=== PATIENT | female | born 1940 | race Caucasian/White ===

== ENCOUNTER 2024-06-22 11:38 | Emergency (ER) | payer MEDICARE, OTHER, SELFPAY ==
[2024-06-22] VITALS (7 sets, daily range): BP systolic 128–186; BP diastolic 41–60; PULSE 65–69; RESP 15–20; TEMP 36.2–36.8; O2SAT 95–97
--- NOTE | ~2024-06-22 | CT_ITS ---
EXAMINATION: CT brain wo con DATE: 06/22/2024 16:12 INDICATION: Altered mental status TECHNIQUE: Computed tomography (CT) of the head was performed without intravenous contrast. Sagittal and coronal reconstructions were performed. The mA was adjusted according to patient size. Iterative reconstruction technique was employed. The dose-length product was 529.67 mGy-cm. COMPARISON: None FINDINGS: No acute intracranial hemorrhage, acute infarction or abnormal extra axial fluid collection. There is mild scattered white matter hypoattenuation consistent with chronic small vessel ischemic disease. S ymmetric prominence of the sulci consistent with moderate age-appropriate diffuse cerebral volume los s. No mass/mass effect. Ventricles are normal and symmetric. Changes of bilateral intraocular lens re placement. The orbits, paranasal sinuses and mastoid air cells are normal. Intracranial calcified cer ebral atherosclerosis is noted. IMPRESSION: 1. Normal aging brain. No acute intracranial process. Reviewed, dictated and finalized at location B. MIXER
--- NOTE | 2024-06-22 12:00 | ECG_ITS ---
Test Date: 2024-06-22 12:08:47 Measurements Intervals [place] Rate: 66 P: 83 PA: 181 QRS: -21 QRSD: 106 T: 30 QT: 434 QTc: 456 Interpretive Statements SINUS RHYTHM SEPTAL MYOCARDIAL INFARCTION , PROBABLY OLD [40+ ms Q WAVE IN V1/V2] No previous ECG available for comparison Electronically Signed On 06-22-2024 14:51:45 RAILROAD OPERATOR by César Lewis M.D.
[2024-06-22 12:18] LABS: Glucose Point of Care 178 mg/dl (65-105)
--- NOTE | 2024-06-22 12:44 | PC.NURSE ---
Spoke with Daughter/Aldair not planned on coming to ED yet but will try later. Will let patient know
[2024-06-22 12:46] LABS: Add Urine Microscopic? NO; Appearance Urine Clear (Clear); Bilirubin Urine Negative (Negative); Blood Urine Negative (Negative); Color Urine Yellow (Yellow); Glucose Urine UA Negative (Negative); Ketones Urine Negative (Negative); Leukocyte Esterase Ur Negative LEU/UL (Negative); Nitrate Urine Negative (Negative); Protein Urine Negative (Negative); Urobilinogen Urine 0.2 mg/dL (<2.0); pH Urine 7.5 (5.0-9.0)
[2024-06-22 12:47] LABS: Basophils Percent Auto 0.5 % (0.2-1.2); Eosinophils Absolute Auto 0.2 K/mm3 (0-0.3); Eosinophils Percent Auto 2.5 % (0-4.4); Hematocrit 42.9 % (37.0-47.0); Hemoglobin 13.8 g/dL (12.0-15.0); Immature Granulocyte Absolute 0.02 K/mm3 (0.00-0.031); Immature Granulocyte Percent A 0.2 % (0-0.5); Lymphocytes Absolute Auto 1.79 K/mm3 (0.9-3.2); Lymphocytes Percent Auto 21.7 % (18.3-44.2); Mean Corpuscular HGB Conc 32.2 g/dl (32-36); Mean Corpuscular Hemoglobin 26.7 pg (26-34); Mean Corpuscular Volume 83.1 fl (80-100); Mean Platelet Volume 10.1 fl (7.4-10.4); Monocytes Absolute Auto 0.9 K/mm3 (0.1-0.6); Monocytes Percent Auto 10.7 % (2.6-8.5); Neutrophils Absolute Auto 5.3 K/mm3 (1.3-6.7); Neutrophils Percent Auto 64.4 % (45.5-73.1); Platelet Count Result 177 k/mm3 (150-375); Red Blood Count 5.16 M/mm3 (4.2-5.4); Red Cell Distribution Width 14.8 % (11.5-14.5); White Blood Count 8.3 K/mm3 (4.5-10.0)
[2024-06-22 12:58] LABS: INR 1.1; Prothrombin Time 14.6 Seconds (11.1-14.7)
[2024-06-22 12:59] LABS: Alanine Aminotransferase 20 U/L (6-35); Albumin Level 4.2 g/dL (3.5-5.1); Alkaline Phosphatase 93 U/L (38-126); Anion Gap 8 mmol/L (4-12); Aspartate Amino Transferase 39 U/L (14-36); Bilirubin,Total 1.5 mg/dL (0.2-1.3); Blood Urea Nitrogen 20 mg/dL (7-17); Calcium 9.9 mg/dL (8.4-10.2); Carbon Dioxide 35 mmol/L (22-30); Chloride 93 mmol/L (98-107); Estimated CRCL calculation 48 ml/min; Estimated Glomerular Filt Rate > 60; Glucose 196 mg/dL (65-110); Partial Thromboplastin Time 29.9 Seconds (22.3-36.8); Potassium 3.9 mmol/L (3.4-5.0); Sodium 136 mmol/L (137-145)
--- NOTE | 2024-06-22 15:48 | ED.AMS ---
HPI - Altered Mental Status General Chief Complaint: Altered Mental Status Stated Complaint: AMS x 2 days Time Seen by Provider: 06/22/24 11:59 History of Present Illness HPI narrative: Patient is an 83-year-old female with history of dementia who presents ER with reported confusion. Oriented to self/place/month but is 2 years behind. She has no complaints pain but she is tearful. Patient had reported to staff that she is having trouble seeing. She does have history of macular degeneration. She has no additional complaints at this time. Related Data Allergies Allergy/AdvReac Type Severity Reaction Status Date / Time Penicillins Allergy Severe LOSS OF Verified 02/26/09 11:50 CONSCIOUSNESS Review of Systems Review of Systems: ROS unobtainable: Yes unobtainable due to mental status PMFSH Past Medical History Medical History (Updated 06/22/24 @ 16:25 by Guillermo Ellison MD) Macular degeneration Diabetes Dementia Exam Narrative: GENERAL: Well-appearing, well-nourished, and in no acute distress. HEAD: Normocephalic, atraumatic. ENT: Mucous membranes moist. CHEST: Clear to auscultation. No respiratory distress. HEART: Regular rate and rhythm. Normal peripheral pulses. ABDOMEN: Soft, nontender, nondistended. EXTREMITIES: Normal range of motion. No edema. SKIN: Warm, dry, no rash. NEURO: Alert and oriented x3. Course Course Emergency Course: Patient resting comfortably. Informed her and family results. Patient be discharged. Vital Signs Vital signs: Vital Signs Temperature 98.2 F 06/22/24 11:49 Pulse Rate 68 06/22/24 11:49 Respiratory Rate 16 06/22/24 11:49 Blood Pressure 186/47 H 06/22/24 11:49 Pulse Oximetry 95 06/22/24 11:49 Oxygen Delivery Room Air 06/22/24 11:49 Temperature 98.2 F 06/22/24 11:49 Pulse Rate 65 06/22/24 14:15 Respiratory Rate 20 06/22/24 14:15 Blood Pressure 128/55 L 06/22/24 14:15 Pulse Oximetry 97 06/22/24 14:15 Oxygen Delivery Room Air 06/22/24 12:00 MDM - Altered Mental Status Lab Data 06/22/24 12:29 06/22/24 12:29 Labs: Lab Results 06/22/24 06/22/24 Range/Units 12:11 12:29 WBC 8.3 (4.5-10.0) K/mm3 RBC 5.16 (4.2-5.4) M/mm3 Hgb 13.8 (12.0-15.0) g/dL Hct 42.9 (37.0-47.0) % MCV 83.1 (80-100) fl MCH 26.7 (26-34) pg MCHC 32.2 (32-36) g/dl RDW 14.8 H (11.5-14.5) % Plt Count 177 (150-375) k/mm3 MPV 10.1 (7.4-10.4) fl Immature Gran % (Auto) 0.2 (0-0.5) % Neut % (Auto) 64.4 (45.5-73.1) % Lymph % (Auto) 21.7 (18.3-44.2) % [place] % (Auto) 10.7 H (2.6-8.5) % Eos % (Auto) 2.5 (0-4.4) % Baso % (Auto) 0.5 (0.2-1.2) % Lymph # (Auto) 1.79 (0.9-3.2) K/mm3 [place] # (Auto) 0.9 H (0.1-0.6) K/mm3 Eos # (Auto) 0.2 (0-0.3) K/mm3 Baso # (Auto) 0.0 (0.0-0.1) K/mm3 Abs Immat Gran (auto) 0.02 (0.00-0.031) K/mm3 Absolute Neuts (auto) 5.3 (1.3-6.7) K/mm3 Absolute Nucleated RBC 0.000 (0.0-0.012) K/mm3 Nucleated RBC % 0.0 (0.0-0.2) % PT 14.6 (11.1-14.7) Seconds INR 1.1 APTT 29.9 (22.3-36.8) Seconds Sodium 136 L (137-145) mmol/L Potassium 3.9 (3.4-5.0) mmol/L Chloride 93 L (98-107) mmol/L Carbon Dioxide 35 H (22-30) mmol/L Anion Gap 8 (4-12) mmol/L BUN 20 H (7-17) mg/dL Creatinine 0.71 (0.7-1.0) mg/dL Estim Creat Clear Calc 48 ml/min Estimated GFR > 60 (59 - ) Glucose 196 H (65-110) mg/dL POC Capillary Glucose 178 H (65-105) mg/dl Calcium 9.9 (8.4-10.2) mg/dL Total Bilirubin 1.5 H (0.2-1.3) mg/dL AST 39 H (14-36) U/L ALT 20 (6-35) U/L Alkaline Phosphatase 93 (38-126) U/L Total Protein 8.0 (6.3-8.2) g/dL Albumin 4.2 (3.5-5.1) g/dL Urine Color Yellow (Yellow) Urine Appearance Clear (Clear) Urine pH 7.5 (5.0-9.0) Ur Specific [place] 1.010 (1.001-1.035) Urine Protein Negative (Negative) mg/dL Urine Glucose (UA) Negative (Negative) mg/dL Urine Ketones Negative (Negative) mg/dL Ur Blood (Man) Negative (Negative) Urine Nitrate Negative (Negative) Urine Bilirubin Negative (Negative) Urine Urobilinogen 0.2 (<2.0) mg/dL Leukocyte Esterase Rfl Negative (Negative) KAREN/UL Imaging Data Radiologist's impression: ITS Impressions Head CT 06/22/24 16:12 IMPRESSION: 1. Normal aging brain. No acute intracranial process. ECG Data EKG #1: ECG completion date: 06/22/24 ECG completion time: 12:08 EKG Interpretation: normal rate (66), sinus rhythm, no ectopy, non-specific ST changes, normal QRS and normal QT Discharge Plan Discharge Clinical Impression: Dementia Patient Disposition: Home, Self-Care Condition: Stable Instructions: Dementia (ED) Additional Instructions: Return the ER if you have fever 100.4? F, he cannot keep down food water, you lose consciousness, or have additional concerns. Patient Language: Slovenian Follow-up/Referrals: UNKNOWN,DOCTOR [Primary Care Provider] - 1 Week
--- NOTE | 2024-06-22 16:46 | PC.NURSE ---
Report to Jayne at [facility]-made aware that daughter will be bringing her home
== END 2024-06-22 16:58 ==
PROVIDERS: Emergency Medicine; Emergency Provider Emergency Medicine
DX: F03.90 Unspecified dementia, unspecified severity, without behavioral disturbance, psychotic disturbance, mood disturbance, and anxiety (principal); H35.30 Unspecified macular degeneration; E11.9 Type 2 diabetes mellitus without complications; R94.31 Abnormal electrocardiogram [ECG] [EKG]
CPT/HCPCS: 36415; 70450; 80053; 81003; 82948; 85025; 85610; 85730; 93005; 99284

== ENCOUNTER 2024-09-15 06:58 | Emergency (ER) | payer MEDICARE, OTHER, SELFPAY ==
--- NOTE | ~2024-09-15 | CT_ITS ---
EXAM: CT brain wo con, CT facial & cervical spine wo, CT thoracic lumbar wo con - 09/15/2024 07:50 CDT History: 83 years old Female with Fall, Bilateral hand, L arm/leg weakness COMPARISON: 06/22/2024 PROCEDURE: CT of the face, head and cervical spine without contrast. Axial, sagittal and coronal re formatted planes were evaluated. FINDINGS: CT HEAD: BRAIN PARENCHYMA: No acute hemorrhage. No mass effect or herniation. Bravo-white matter differentiatio n is maintained. Mild chronic volume loss. Scattered hypodensities in subcortical and periventricular white matter, likely representing chronic microvascular ischemic changes in this age group. Atherosc lerotic calcification of the intracranial vessels is noted. VENTRICLES/ EXTRA-AXIAL SPACES: No hydrocephalus or extra-axial fluid collection. EXTRACRANIAL STRUCTURES: No calvarial fracture. Partial opacification of bilateral sinuses with air f luid levels. CT CERVICAL SPINE: No acute fracture or subluxation. Straightening of cervical lordosis, likely positional or may be rel ated to muscle spasm. Multilevel degenerative changes of the cervical spine include varying degrees o f disk space narrowing, endplate osteophytosis as well as facet and uncal arthropathy. Prevertebral s oft tissues are within normal limits. Visualized lung apices are clear. CT FACE: BONES: Nondisplaced fracture of the bilateral nasal bone (left greater than right) with overlying sof t tissue injury. No evidence of periorbital, zygomatic, maxillary, pterygoid or mandible fracture. Th e temporomandibular joints are intact. PARANASAL SINUSES and MASTOID AIR CELLS: Clear. SOFT TISSUES: Globes are symmetric and intact. No retrobulbar soft tissue edema, hemorrhage or air. OTHER: Patient is partially edentulous. IMPRESSION: 1. Nondisplaced fracture of the bilateral nasal bone (left greater than right) with overlying soft t issue injury. 2. No evidence for acute intracranial hemorrhage or calvarial fracture. 3. No evidence for cervical spine fracture or traumatic subluxation. 4. Multilevel degenerative changes of the cervical spine. Reviewed, dictated and finalized at location A. IMPRESSION: 1. Nondisplaced fracture of the bilateral nasal bone (left greater than right) with overlying soft tissue injury. 2. No evidence for acute intracranial hemorrhage or calvarial fracture. 3. No evidence for cervical spine fracture or traumatic subluxation. 4. Multilevel degenerative changes of the cervical spine. IMPRESSION: 1. Nondisplaced fracture of the bilateral nasal bone (left greater than right) with overlying soft tissue injury. 2. No evidence for acute intracranial hemorrhage or calvarial fracture. 3. No evidence for cervical spine fracture or traumatic subluxation. 4. Multilevel degenerative changes of the cervical spine.
--- NOTE | ~2024-09-15 | XR_ITS ---
EXAM/ PROCEDURE: XR hip LT 2V w AP pelvis - 09/15/2024 07:40 CDT HISTORY: 83 years old Female with Fall, Hip pain COMPARISON: None available TECHNIQUE: Three view(s) FINDINGS/ IMPRESSION: There are no fractures or dislocations.Joint space narrowing, subchondral sclerosis, subchondral cyst formation and osteophyte formation, compatible with moderate osteoarthritis. Reviewed, dictated and finalized at location A.
--- NOTE | ~2024-09-15 | XR_ITS ---
EXAM/PROCEDURE: XR chest 1V portable - 09/15/2024 07:40 CDT HISTORY: 83 years old Female with Fall, Bilateral hand weakness, L arm/leg weakness TECHNIQUE: Two view(s) of the chest. COMPARISON: None available. FINDINGS: LUNGS/ PLEURA: Mild vascular congestion with increased interstitial markings. HEART/ MEDIASTINUM: Mild cardiomegaly. Atherosclerotic calcifications are seen. BONES: Degenerative changes. OTHER: Visualized upper abdomen is unremarkable. IMPRESSION: Mild cardiomegaly with pulmonary vascular congestion. Superimposed infection cannot be excluded. Reviewed, dictated and finalized at location A. IMPRESSION: Mild cardiomegaly with pulmonary vascular congestion. Superimposed infection ca nnot be excluded.
[2024-09-15 07:01] VITALS: BP 137/116; PULSE 65; RESP 16; TEMP 36.5; O2SAT 98
--- OUTSIDE RECORDS SUMMARY | 2024-09-15 07:18 | XMS_ITS | Clinical Summary ---
Author Organization [facility] Address [address] [place] [address] Phone Care Team Providers Care Brass Buffer Name Role Phone Varun Leung MD Primary Care Provider [phone] Allergies Active Allergy Reactions Criticality Noted Date Comments Penicillins Other (See Comments) 06/03/2016 Pt states she fell of the commode due to dizziness Sulfa (Sulfonamide Antibiotics) Rash Low 06/03/2016 Medications atenolol (TENORMIN) 100 mg tablet Take 100 mg by mouth daily. Active atorvastatin (LIPITOR) 20 mg tablet Take 20 mg by mouth late in the day. Active hydroCHLOROthia zide 25 mg tablet Take 25 mg by mouth daily. 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 Active metFORMIN (GLUCOPHAGE) 1,000 mg tablet Take 1,000 mg by mouth daily before supper. Active sertraline (ZOLOFT) 50 mg tablet Take 50 mg by mouth daily. Active Vit C-Vit U-Prdpgk-KbGo-L utein (PRESERVISION) 226 mg-200 unit -5 mg-0.8 mg Capsule Take 1 Capsule by mouth 2 times daily. Active acetaminophen (TYLENOL) 500 mg tablet Take 500 mg by mouth every 6 hours as needed. Active traMADol (ULTRAM) 50 mg tablet Take 2 Tablet (100 mg) by mouth every 6 hours as needed for Pain. 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 Gender Identity Not on file Sexual Orientation Not on file Last Filed Vital Signs Vital Sign Reading Time Taken Comments Blood Pressure 140/40 06/23/2016 8:09 AM ENTERPRISE SERVICES MANAGER Pulse 72 06/23/2016 8:09 AM ENTERPRISE SERVICES MANAGER Temperature 36.8 C (98.3 F) 06/23/2016 8:09 AM ENTERPRISE SERVICES MANAGER Respiratory Rate 18 06/23/2016 8:09 AM ENTERPRISE SERVICES MANAGER Oxygen Saturation 95% 06/23/2016 8:09 AM ENTERPRISE SERVICES MANAGER Inhaled Oxygen Concentration - - Weight 79.4 kg (175 lb) 06/21/2016 4:06 PM ENTERPRISE SERVICES MANAGER Height 160 cm (5' 3 ) 06/21/2016 4:06 PM ENTERPRISE SERVICES MANAGER Body Mass Index 31 06/21/2016 4:06 PM ENTERPRISE SERVICES MANAGER Plan of Treatment Health Maintenance Due Date Last Done Comments DTAP/TDAP/TD VACCINES (1 - Tdap) 1957 PNEUMOCOCCAL VACCINE 50+ YEARS (1 of 1 - PCV) 12/20/18 89 ZOSTER VACCINE (1 of 2) 1988 OSTEOPOROSIS SCREENING 12/21/2003 RSV VACCINE (60+ or ) (1 - 1-dose 75+ series) 2013 INFLUENZA VACCINE (#1) 2024 03/06/2016 Medical Devices Implanted Type Area Asbestos Wire Finisher Device Identifier Shelf Expiration Date Model / Serial / Lot Hemostatic Gelfoam Plus Spng Kt [id number] - [id number] Implanted:Qt y: 1 on 06/21/2016 by Mahad Dickerson MD at [facility] Hemostatic N/A: Vertebrae [employer]- [employer]ENCE [id number] 10/03/2017 [id number] / / [id number] Tkr Cataract Lens Insurance Advance Directives For more information, please contact: [phone] * Full Code (Latest Code Status on File) Date Activated Date Inactivated Comments 06/21/2016 2:04 PM 06/23/2016 1:27 PM * Full Code Date Activated Date Inactivated Comments 06/21/2016 9:25 AM 06/21/2016 2:04 PM * Full Code Date Activated Date Inactivated Comments 06/21/2016 8:45 AM 06/21/2016 9:25 AM Care Teams Brass Buffer Relationship Specialty Start Date End Date Varun Leung MD [address] [place] [address] PCP - General Internal Medicine 05/25/16
--- OUTSIDE RECORDS SUMMARY | 2024-09-15 07:19 | XMS_ITS | Referral Summary ---
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 Active blood-glucose meter kit Use daily for monitoring of diabetes DX E11.65 1 each 9 Active multivit-minerals/ folic acid (CENTRUM VITAMINTS ORAL) Take by mouth education dean before breakfast Active albuterol HFA (PROVENTIL HFA,VENTOLIN HFA,PROAIR HFA) 90 mcg/actuation inhaler Inhale 1-2 puffs every 6 (six) hours as needed for wheezing 1 g 2 Active ondansetron (ZOFRAN) 4 mg tablet Take 1 tablet (4 mg total) by mouth every 6 (six) hours 12 tablet 2 Active benzonatate (TESSALON) 100 mg capsuleIndications :Cough Take 1 capsule (100 mg total) by mouth every 8 (eight) hours 21 capsule 2 Active atorvastatin (LIPITOR) 20 mg tabletIndications: Mixed hyperlipidemia TAKE 1 TABLET(20 MG) BY MOUTH DAILY 90 tablet 3 3 Active hydroCHLOROthiazid e (HYDRODIURIL) 25 mg tablet Take 1 tablet (25 mg total) by mouth daily 90 tablet 2 3 Active sertraline (ZOLOFT) 50 mg tablet Take 1 tablet (50 mg total) by mouth daily 90 tablet 3 Active blood glucose diagnostic (OneTouch Verio test strips) strip USE TO CHECK BLOOD GLUCOSE ONE TIME DAILY 100 strip 3 3 Active SITagliptin phosphate (Januvia) 100 mg tablet Take 1 tablet by mouth once daily 90 tablet 3 3 Active lancets (OneTouch Delica Plus Lancet) 30 gauge misc Use to test blood sugars once daily 100 each 3 3 Active levothyroxine (SYNTHROID) 88 mcg tablet Take 1 tablet (88 mcg total) by mouth daily 90 tablet 1 3 Active repaglinide (PRANDIN) 1 mg tablet Take 1 tablet by mouth with each meal daily 270 tablet 3 Active metoprolol tartrate (LOPRESSOR) 25 mg immediate release tabletIndications: Essential hypertension TAKE ONE TABLET BY MOUTH 2 TIMES A DAY 60 tablet 4 4 Active Active Problems Problem Noted Date Diagnosed Date Severe obesity (BMI 35.0-39.9) with comorbidity 08/31/2022 Numbness and tingling in left hand 03/06/2020 Overview (08/13/2020): Started in fall 2019, entire hand tingles, feels numb. No pain in neck, elbow or wrist. Assessment & Plan (08/24/2020 1:49 PM CDT): For the past six months, just after her last office visit, she has noticed numbness and tingling in her right hand. It is the entire hand. There is no pain in the neck or at the right elbow or right wrist. Exam shows no weakness or reflex deficit. I recommended that she have an EMG/NCS. She does not want to pursue any diagnostic testing right now, but will call when she is ready to do so. Type 2 diabetes mellitus wit h hyperglycemia, without long-term current use of insulin 01/23/2019 Assessment & Plan (02/26/2022 1:05 PM CDT): Her last HbA1c was 7.5% in endocrinology. Dr. Munoz was happy with this result. She had her eye exam. We will get the report. Assessment & Plan (08/26/2021 11:57 AM CDT): She says Dr. Munoz is happy with her current blood sugars and HbA1c which is slightly elevated. Continue Januvia and Prandin. Lab Results Component Value Date HGBA1C 8.2 (H) 08/19/2021 Assessment & Plan (02/23/2021 11:21 AM CDT): She is working with Dr. Munoz to get her diabetes under better control. Her next visit is in about six weeks. Her hemoglobin A1c has gone up a bit. We discussed this today. She is working to control her diet, and hopefully get her weight down. Lab Results Component Value Date HGBA1C 8.6 (H) 02/17/2021 HGBA1C 7.8 01/05/2021 HGBA1C 7.8 (H) 06/25/2020 Lab Results Component Value Date LDLCALC 90 02/17/2021 CREATININE 0.62 02/17/2021 Assessment & Plan (12/27/2019 10:01 AM CDT): She is followed by Dr. Munoz. Hemoglobin A1c at the point of care was slightly elevated. She takes Prandin with meals in addition to Januvia. Unfortunately, she is intolerant of metformin. She will keep her follow ups with Dr. Munoz. Scab 08/04/2017 Overview (08/13/2020): Left lower fuller, started as a hematoma/abrasion when she lost balance stepping off exercise equipment at [employer]. It never completely healed. Assessment & Plan (08/13/2020 12:51 PM PLAN MANAGER): She has a fairly nondescript and irregularly shaped eschar over left lower fuller with mild surrounding erythema, total diameter of approximately 2 cm, with the scabbed area much less than that. There is no discharge. There is no significant tenderness. We discussed possible referral for a biopsy given the reported duration of three years, but she wants to defer anything elective until after she is fully vaccinated against SARS-CoV-2 and immune. We will re-evaluate this area at her follow-up in six months. 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 Roth. Assessment & Plan (08/26/2021 12:01 PM CDT): She sees Dr. Roth, continue same. Assessment & Plan (08/24/2020 1:52 PM CDT): She sees Dr. Roth for this. Nonexudative age-related macular degeneration of left eye 07/03/2017 Overview (07/03/2017): Sees Dr. Roth. Assessment & Plan (08/26/2021 11:59 AM CDT): She will keep her follow ups with Dr. Roth, her retina specialist. Spinal stenosis of lumbar re gion with neurogenic claudication 06/22/2016 Assessment & Plan (06/23/2019 10:01 AM PLAN MANAGER): She takes Tylenol as needed. It seems to help. Gait in the office today is fairly unremarkable. Continue to monitor clinically. 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 She denies having chest pain or pressure. We will check some follow-up labs next week. Assessment & Plan (08/26/2021 12:50 PM CDT): Systolic blood pressure was mildly elevated on initial reading. It could have to do with the current stress in her life. Previously she was well controlled. We checked again before she left and it was down to her usual range. We will see her back in 6 months. Assessment & Plan (02/23/2021 11:16 AM CDT): Systolic blood pressure is somewhat borderline, but she was in a hurry to get here. She had to stop in the lab first, then register, then get up stairs. We will continue current therapy which traditionally has controlled her blood pressure very well. Lab Results Component Value Date GLUCOSE 197 02/17/2021 CALCIUM 9.2 02/17/2021 SODIUM 140 02/17/2021 POTASSIUM 3.9 02/17/2021 CO2 27 02/17/2021 CHLORIDE 103 02/17/2021 BUNSER 13 02/17/2021 CREATININE 0.62 02/17/2021 Assessment & Plan (08/13/2020 11:28 AM PLAN MANAGER): Blood pressure is in a good range. She denies having any chest pain or dizziness. Continue current therapy. Assessment & Plan (12/27/2019 10:00 AM CDT): Blood pressure is in a reasonable range on current therapy. Continue same and follow-up in six months. Assessment & Plan (06/13/2019 10:51 AM PLAN MANAGER): Blood pressure is in a good range on current therapy. Labs are stable. Continue same and follow-up in six months. Lab Results Component Value Date GLUCOSE 151 (H) 05/08/2019 CALCIUM 10.0 01/23/2019 SODIUM 140 01/23/2019 POTASSIUM 4.1 01/23/2019 CO2 28 01/23/2019 CHLORIDE 102 01/23/2019 BUNSER 12 01/23/2019 CREATININE 0.53 (L) 01/23/2019 Assessment & Plan (11/25/2018 12:17 PM CDT): BP is in a good range on current therapy. Continue same. Monitor labs periodically. Lab Results Component Value Date GLUCOSE 134 12/28/2017 CALCIUM 9.2 12/28/2017 SODIUM 140 12/28/2017 POTASSIUM 4.0 12/28/2017 CO2 26 12/28/2017 CHLORIDE 101 12/28/2017 BUNSER 12 12/28/2017 CREATININE 0.48 (L) 12/28/2017 Assessment & Plan (05/15/2018 12:17 PM PLAN MANAGER): Blood pressure is in a good range. Labs from about six months ago are normal. We will check another set before her follow-up in six months. Assessment & Plan (11/07/2017 11:50 AM CDT): Blood pressure is in a good range. She is tolerating her current medications. Denies chest pain. Follow-up in six months. Assessment & Plan (04/18/2017 12:09 PM PLAN MANAGER): Blood pressure is in a good range. She is feeling well and has no new symptoms of concern. We plan to see her back in six months. If labs are needed at that time, they will be ordered at the appointment. Persistent mood disorder 03/06/2012 Assessment & Plan (02/26/2022 1:06 PM CDT): She worries about her who is aging and has chronic conditions. Otherwise she is doing well on Zoloft. Assessment & Plan (08/26/2021 11:59 AM CDT): She is on Zoloft. She has been under a lot of stress lately. Her was hospitalized with acute on chronic systolic heart failure. He did respond well to treatment. Her grandson has developed a neurological condition, possibly seizures. She also had water in her basement, and a check bounced. She is coping as well as she can. We provided supportive care. Assessment & Plan (02/23/2021 11:17 AM CDT): She has had a little more trouble with anxiety lately. She is trying to help her and his health problems. She is not sleeping well at night. We talked about counseling, but she is not interested at this time. We talked about changing the current dose of generic Zoloft or adding something else, but she does not want to take another pill or change anything right now. She says she will call if there are intractable problems, otherwise follow-up in six months. Assessment & Plan (08/13/2020 11:27 AM PLAN MANAGER): She is cheerful. She is tired of staying indoors because of COVID, but did get her first dose of vaccine recently. The second dose is due towards the end of this month. She continues on Zoloft 50 mg daily. Assessment & Plan (06/23/2019 10:01 AM PLAN MANAGER): She is on generic Zoloft, she is very cheerful in the office. Continue current therapy and supportive care. Assessment & Plan (11/15/2018 9:48 AM CDT): She is cheerful in the office, but says she has her depressed moments. She continues on generic Zoloft. She seems to stay busy and has a good social network including her and children. Continue medication and supportive care. Assessment & Plan (05/15/2018 12:17 PM PLAN MANAGER): She seems pretty cheerful. She is on sertraline. Continue same and follow-up in six months. Assessment & Plan (11/07/2017 11:51 AM CDT): Mood is stable on her current dose of generic Prozac. She is quite cheerful. She does get a little anxious at night when she is alone, and actually went to the emergency room back in August for evaluation of some neck pains that occurred when her was out of the house for the evening having a sleep study. They diagnosed muscle spasms and gave her some muscle relaxants. The symptoms have not recurred. She will continue current therapy and follow up in six months. Hyperlipidemia associated with type 2 diabetes malcolm reyes 03/06/2012 Assessment & Plan (02/26/2022 1:04 PM CDT): She is tolerating generic Lipitor. We will check labs sometime next week to give her feedback. Assessment & Plan (08/26/2021 12:00 PM CDT): She takes generic Lipitor. We will check lipids again before her next visit in six months. Assessment & Plan (02/23/2021 11:16 AM CDT): Lipid profile is reasonable on her current dose of generic Lipitor. There is no evidence of any toxicity. Continue same and follow-up in six months. Lab Results Component Value Date CHOL 159 02/17/2021 CHOL 166 12/13/2019 CHOL 170 09/27/2017 Lab Results Component Value Date HDL 37 (L) 02/17/2021 HDL 37 (L) 12/13/2019 HDL 44 (L) 09/27/2017 Lab Results Component Value Date LDLCALC 90 02/17/2021 LDLCALC 96 12/13/2019 LDL 95 09/27/2017 LDL 124 11/08/2014 LDL 129 03/13/2014 Lab Results Component Value Date TRIG 162 (H) 02/17/2021 TRIG 164 (H) 12/13/2019 TRIG 213 (H) 09/27/2017 Assessment & Plan (08/13/2020 11:29 AM PLAN MANAGER): She is tolerating generic Lipitor. Continue same. Assessment & Plan (12/27/2019 9:59 AM CDT): She is tolerating generic Lipitor. Cholesterol numbers are fair. Continue same and follow-up in six months. Assessment & Plan (06/13/2019 10:51 AM PLAN MANAGER): She is on generic Lipitor, tolerating well. We will check a follow-up lipid panel before next visit in about six months. Assessment & Plan (11/15/2018 9:46 AM CDT): She is tolerating generic Lipitor. Continue same and check a lipid panel before her next office visit in about six months. Lab Results Component Value Date CHOL 170 09/27/2017 CHOL 218 (H) 11/08/2014 CHOL 226 (H) 03/13/2014 Lab Results Component Value Date HDL 44 (L) 09/27/2017 HDL 41 11/08/2014 HDL 45 (L) 03/13/2014 Lab Results Component Value Date LDL 95 09/27/2017 LDL 124 11/08/2014 LDL 129 03/13/2014 Lab Results Component Value Date TRIG 213 (H) 09/27/2017 TRIG 267 (H) 11/08/2014 TRIG 259 (H) 03/13/2014 Assessment & Plan (11/07/2017 11:51 AM CDT): There has been improvement in her cholesterol panel. She is tolerating generic Lipitor. Continue same. Assessment & Plan (04/18/2017 12:13 PM PLAN MANAGER): She is on generic Lipitor. She has not had a profile for awhile, so we will get that checked at her next appointment as well. In the meantime, continue current therapy which he seems to be tolerating well. Primary hypothyroidism 03/06/1997 Assessment & Plan (02/26/2022 1:05 PM CDT): She is on a stable dose of thyroid replacement. We will check a TSH next week. Assessment & Plan (08/26/2021 11:58 AM CDT): She is on a stable dose of levothyroxine. Replacement is monitored by Endocrinology, Dr. Munoz. Lab Results Component Value Date TSH 1.55 06/25/2020 Assessment & Plan (02/23/2021 11:17 AM CDT): She is on a stable dose of levothyroxine. Continue same, and monitor TSH periodically. Lab Results Component Value Date TSH 1.55 06/25/2020 Assessment & Plan (08/13/2020 11:26 AM PLAN MANAGER): TSH is in a good range on her current dose of levothyroxine. Continue same. Lab Results Component Value Date TSH 1.55 06/25/2020 Assessment & Plan (01/06/2020 3:59 PM CDT): She is on a stable dose of replacement therapy. She will be due for a TSH with her next set of labs. Assessment & Plan (06/13/2019 10:52 AM PLAN MANAGER): She is on a stable dose of thyroid replacement. She is monitored with periodic lab values. Continue same and follow-up in six months. Lab Results Component Value Date TSH 0.64 01/23/2019 Assessment & Plan (11/15/2018 9:45 AM CDT): She is on a stable dose of thyroid replacement. We will check a follow-up TSH before her next visit in about six months. Lab Results Component Value Date TSH 1.28 12/28/2017 Assessment & Plan (05/15/2018 12:18 PM PLAN MANAGER): TSH about six months ago was normal. We will check another one before her next visit in six months. Assessment & Plan (11/07/2017 11:50 AM CDT): Her TSH was a little low, so Dr. Munoz lowered the replacement dose. She will follow up with him for additional testing. Assessment & Plan (04/18/2017 12:11 PM PLAN MANAGER): She is also followed by Dr. Munoz. There has been no recent TSH, but she has been on a stable dose for awhile now. This will be ordered to be done at her next appointment. Irritable bowel syndrome with diarrhea 7 Obesity (BMI 30-39.9) 03/06/1997 Overview (02/26/2022): Lost weight, BMI <35 as of about January 2022. Assessment & Plan (02/26/2022 1:04 PM CDT): We encouraged attention to her diet, and hopefully a little bit of weight loss. Assessment & Plan (08/26/2021 11:57 AM CDT): We encouraged attention to her diet, and hopefully some weight loss. Assessment & Plan (03/08/2021 7:26 PM CDT): We discussed her weight. She admits that she has not been totally compliant with her diet. She eats comfort foods. When she saw that her blood sugar got up to 223, she started to pay more attention to her diet. Hopefully she will also lose some weight. Follow-up in six months. Assessment & Plan (01/06/2020 3:59 PM CDT): Her weight is relatively stable. She should continue on a proper diet and try to lose a little weight. Assessment & Plan (06/23/2019 10:00 AM PLAN MANAGER): She admits to not adhering tightly to her diet. Weight is up a few lb. She will continue efforts to control her weight and even reduce, and we will see her back in six months. Assessment & Plan (11/25/2018 12:18 PM CDT): Weight is stable. She says that just looking at food makes her gain weight. She likes to eat. Generally she avoids sweets, but did have a Dairy Jung Blizzard last night. She will continue efforts to eat right. Assessment & Plan (04/18/2017 12:14 PM PLAN MANAGER): Weight is stable. She knows she could eat better than she does and will continue to work on that. We will check her again in six months. Resolved Problems Problem Noted Date Diagnosed Date Resolved Date Hx of colonic polyps 04/02/2019 021 Overview (08/12/2020): Added automatically from request for surgery [id number], colonoscopy on 05/08/2019: Normal except for hemorrhoids, diverticuli, Dr. Love, [facility]. Needs flu shot 04/01/2019 06/12/2019 Left-sided epistaxis 11/01/2017 021 Overview (08/12/2020): Details lacking. Type 2 diabetes mellitus cj ated without insulin 02/28/2013 10/01/2020 Overview (09/08/2016): Diabetes Mellitus, Type 2, Uncontrolled Assessment & Plan (08/13/2020 11:26 AM PLAN MANAGER): She is doing okay. Hemoglobin A1c is acceptable. She also follows up with Dr. Munoz. Return here in six months. Lab Results Component Value Date HGBA1C 7.8 (H) 06/25/2020 Assessment & Plan (06/13/2019 10:53 AM PLAN MANAGER): She is seeing Dr. Munoz for assistance in getting her blood sugar under better control. She admits to dietary noncompliance over the holidays. Last hemoglobin A1c was somewhat elevated. She will keep her follow ups with endocrinology and return here in six months. Lab Results Component Value Date HGBA1C 7.6 04/25/2019 Assessment & Plan (11/25/2018 12:19 PM CDT): She is seeing Dr. Munoz who is helping to manage her diabetes. Last hemoglobin A1c in his office was 8.1%. This represents suboptimal control on current therapy, but the patient admits to some dietary noncompliance at times, as well as not taking her metformin regularly. She says the metformin s mells bad, and makes my urine smell bad. She has to admit that she takes about half of the prescribed doses of metformin. She will discuss this with Dr. Munoz at her next visit in about one month. Perhaps an alternative medication is available. Lab Results Component Value Date HGBA1C 8.1 09/06/2018 Assessment & Plan (05/28/2018 5:57 PM PLAN MANAGER): Blood sugars are still fluctuating moderately. She had a point of care hemoglobin A1c two days ago in Dr. Munoz office. It was 7.7. He encouraged her to eat right but it is difficult over the holidays. She will keep her follow ups with Dr. Munoz and return here as well in six months. Assessment & Plan (11/20/2017 5:48 AM CDT): Control of diabetes is much improved with a recent hemoglobin A1c of about 6.[address] Munoz office. The result is not actually in her file, but was a point of care test that she reports. Exam is stable. When she checks blood sugars at home, they are typically in the low 100 mg/dL range. She will continue her current medication and diet and keep her follow ups with me and Dr. Munoz. Assessment & Plan (04/18/2017 12:15 PM PLAN MANAGER): She sees Dr. Munoz who has a scheduled follow-up with her in June. Her hemoglobin A1c was 8.0 which is not optimal. She will be working on her diet and weight. She does complain that the metformin gives her some nocturnal diarrhea. Sometimes she will be up at three o'clock in the morning with this. I encouraged her to discuss it with Dr. Munoz. Her eye exam is up-to-date with Dr. Roth. Is due again in June. Immunizations Immunization Administration Dates Next Due Influenza, Quad, Adjuvantate d, Intramuscular 03/25/2021 Influenza, Quadrivalent, Hig h Dose, Preservative Free, Intrr 04/16/2022,03/05/2020 Influenza, Split 03/10/2010 Influenza, Trivalent, Adjuva nted, Intramuscular 03/02/2018 Influenza, Trivalent, High D ose, Split, Preservative Free, Intramuscular 03/22/2019,03/10/2017,02/26/2016,02/25 Influenza, Trivalent, IM (MDV) 6,04/01/2015,04/01/2014,03/11,04/14/2013,02/24/2012,03/02/2011 ,03/06/2009 Influenza, Unspecified 03/06/2016 Pfizer SARS-CoV-2 Monovalent Vaccination (12+ Yrs) PURPLE 08/24/2020,08/02/2020 Pneumococcal Conjugate PCV 13 03/10/2017 Pneumococcal Polysaccharide PPV23 02/14/2011,04/2011,03/06/2009 Tdap 04/18/2017 Social History Tobacco Use Types Packs/Day Years Used Date Smoking Tobacco: Never Smokeless Tobacco: Never Tobacco Cessation:Counseling Given: Yes Alcohol Use Standard Drinks/Week Comments Never 0 (1 standard drink = 0.6 oz pur e alcohol) AUDIT-C Answer Date Recorded Frequency of Alcohol Consumption Never 05/07/2019 Average Number of Drinks Not on file 019 Frequency of Binge Drinking Not on file 07/2018 PHQ-2 Answer Date Recorded PHQ-2 Total Score (If total score is 3 or more points, staff should administer the PHQ-9) 4 08/26/2021 Comments No Sex and Gender Information Value Date Recorded Sex Assigned at Not on file Legal Sex Female 12:51 AM PLAN MANAGER Gender Identity Not on file Sexual Orientation Not on file Last Filed Vital Signs Vital Sign Reading Time Taken Comments Blood Pressure 156/52 05/15/2022 9:34 PM PLAN MANAGER Pulse 73 05/15/2022 9:34 PM PLAN MANAGER Temperature 36.6 C (97.8 F) 05/15/2022 9:34 PM PLAN MANAGER Respiratory Rate 16 05/15/2022 9:34 PM PLAN MANAGER Oxygen Saturation 98% 05/15/2022 9:34 PM PLAN MANAGER Inhaled Oxygen Concentration - - Weight 83 kg (183 lb) 05/15/2022 4:22 PM PLAN MANAGER Height 152.4 cm (5') 02/26/2022 11:23 AM CDT Body Mass Index 35.74 02/26/2022 11:23 AM CDT Plan of Treatment Not on file Medical Devices Implanted Type Area Vending Machine Technician Device Identifier Shelf Expiration Date Model / Serial / Lot Knee Bilateral: Knee Procedures Procedure Name Priority Date/Time Associated Diagnosis Comments EGFR STAT 05/15/2022 4:29 PM PLAN MANAGER DIABETES EYE EXAM Routine 02/17/2022 POCT HEMOGLOBIN A1C Routine 01/27/2022 8 :51 AM CDT Type 2 diabetes mellitus with hyperglycemia, without long-term current use of insulin (HCC) ALBUMIN CREATININE RATIO, URINE Routine 02/23/2021 10:50 AM CDT Type 2 diabetes mellitus treated without insulin (HCC) Hypertension associated with type 2 diabetes mellitus (HCC) Hyperlipidemia associated with type 2 diabetes mellitus (HCC) LIPID PANEL Routine 02/17/2021 7:56 AM CDT Type 2 diabetes mellitus treated without insulin (HCC) Hypertension associated with type 2 diabetes mellitus (HCC) Hyperlipidemia associated with type 2 diabetes mellitus (HCC) DIABETES FOOT EXAM Routine 09/21/2017 from Last 3 Months or Most Recently Relevant to Health Maintenance Results * eGFR (05/15/2022 4:29 PM PLAN MANAGER) eGFR 79 mL/min/1. 73 m2 [facility] ([facility]) Comment: Interpretive Data Reference Interval Normal >/= 90 mL/min/1.73m2 Mildly decreased* 60 - 89 mL/min/1.73m2 Mildly to moderately decreased 45 - 59 mL/min/1.73m2 Moderately to severely decreased 30 - 44 mL/min/1.73m2 Severely decreased 15 - 29 mL/min/1.73m2 Kidney Failure < 15 mL/min/1.73m2 *Relative to young adult level Estimated glomerular filtration rate is determined by the 2020 CKD-EPI equation recommended by the National Kid[employer] Foundation (A Unifying Approach to GFR Estimation: Recommendations of the NKF-ASK Task Force on Reassessing the Inclusion of Race in Diagnosing Kidney Disease, JASN 202). The CKD-EPI equation should not be used for patients with unstable renal function and has not been validated in children and those over 70. Current interpretive data was last reviewed 2021. Blood 05/15/2022 4:29 PM PLAN MANAGER 05/15/2022 4:39 PM PLAN MANAGER us Madina Colon MD LAB BLOOD ORDERABLES Final Result [facility] ([facility]) 1 [facility] Department [place] [address] * DIABETES EYE EXAM (02/17/2022) SCRIBED HM DIABETIC DILATED EYE EXAM Normal Impressions Anton Cho MD - 02/17/2022 Patient declined pupil dilation, but no diabetic retinopathy reported. Narrative Anton Cho MD - 02/17/2022 See scanned report. Marie Gregory OD HEALTH MAINTENANCE Final Result * POCT hemoglobin A1c (01/27/2022 8:51 AM CDT) Pathologist [facility] Hemoglobin A1C, POC 7.5 Blood specimen (specimen) 01/27/2022 8:51 AM CDT Harjeet Munoz MD POINT OF CARE TEST ORDERABLES Final Result * Albumin Creatinine Ratio, Urine (02/23/2021 10:50 AM CDT) Pathologist [facility] Albumin Ur <12.0 mg/L [facility] Comment: Interpretive Data No reference range established. Current interpretive data was last revised 2018. Creatinine Ur 90.7 mg/dL [facility] Comment: Interpretive Data No reference range established. Current interpretive data was last revised 2018. Albumin Creatinine Ratio, Ur <13 1 - 29 mg/g [facility] Urine 02/23/2021 10:5 0 AM CDT 02/23/2021 4:36 PM CDT Anton Cho MD LAB URINE ORDERABLES Final [facility] [address] [address] Department [place] [address] * (ABNORMAL) Lipid panel (02/17/2021 7:56 AM CDT) [facility] Cholesterol 159 30 - 199 mg/dL [facility] Comment: Interpretive Data Ages < or = 19 years Acceptable: <170 mg/dL Borderline high: 170-199 mg/dL High: >or= 200 mg/dL Ages > or = 20 years Desirable: <200 mg/dL Borderline high: 200-239 mg/dL High: >or= 240 mg/dL Literature References: 1. Expert Panel on Integrated Guidelines for Cardiovascular Health and Risk Reduction in Children and Adolescents. Pediatrics 2011;128:S213 2. NCEP Expert Panel. Circulation 2003;110:227 Current Interpretive Data was last revised on 2018. Triglycerides 162(H) <=149 mg/dL [facility] Comment: Interpretive Data Ages < or = 9 years Acceptable: <75 mg/dL Borderline high: 75-99 mg/dL High: >or= 100 mg/dL Ages 10 to 20 years Acceptable: <90 mg/dL Borderline high: 90-129 mg/dL High: >or= 130 mg/dL Ages > or = 20 years Desirable: <150 mg/dL Borderline high: 150-199 mg/dL High: 200-499 mg/dL Very high: >or= 499 mg/dL Literature References: 1. Expert Panel on Integrated Guidelines for Cardiovascular Health and Risk Reduction in Children and Adolescents. Pediatrics 2011;128:S213 2. NCEP Expert Panel. Circulation 2003;110:227 Current Interpretive Data was last revised on 2018. HDL 37(L) >=40 mg/dL [facility] Comment: Interpretive Data Ages < or = 19 years Acceptable: >45 mg/dL Borderline low: 40-45 mg/dL Low: <40 mg/dL Ages > or = 20 years Desirable: >or= 60 mg/dL Low: <40 mg/dL Literature References: 1. Expert Panel on Integrated Guidelines for Cardiovascular Health and Risk Reduction in Children and Adolescents. Pediatrics 2011;128:S213 2. NCEP Expert Panel. Circulation 2003;110:227 Current Interpretive Data was last revised on 2018. LDL, calculated 90 <=129 mg/dL [facility] Comment: Interpretive Data Ages < or = 19 years Acceptable: <110 mg/dL Borderline high: 110-129 mg/dL High: >or= 130 mg/dL Ages > or = 20 years Optimal: <100 mg/dL Near optimal: 100-129 mg/dL Borderline high: 130-159 mg/dL High: >160 mg/dL Literature References: 1. Expert Panel on Integrated Guidelines for Cardiovascular Health and Risk Reduction in Children and Adolescents. Pediatrics 2011;128:S213 2. NCEP Expert Panel. Circulation 2004;110:227 Current Interpretive Data was last revised on 2018. Non-HDL Cholesterol 122 mg/dL [facility] V[facility]URA Comment: Interpretive Data Ages < or = 19 years Acceptable: <120 mg/dL Borderline high: 120-144 mg/dL High: >145 mg/dL Ages > or = 20 years When triglycerides are >200 mg/dL, Non-HDL cholesterol is a secondary target of therapy with treatment goals that are 30 mg/dL greater than the LDL cholesterol target. Literature References: 1. Expert Panel on Integrated Guidelines for Cardiovascular Health and Risk Reduction in Children and Adolescents. Pediatrics 2011;128:S213 2. NCEP Expert Panel. Circulation 2003;110:227 Current Interpretive Data was last revised on 2018. Chol/HDL ratio 4 [facility]ELE VENTURA Blood 02/17/2021 7:56 AM CDT 02/17/2021 3:29 PM CDT Anton Cho MD LAB BLOOD ORDERABLES Final Re sult [place] [id number] [address] Department [place] [address] * DIABETES FOOT EXAM (09/21/2017) [facility] Diabetic Foot Exam Unknown Historical Provider HEALTH MAINTENANCE Final Result from Last 3 Months or Most Recently Relevant to Health Maintenance Insurance [facility] MEDICARE ADVANTAGE [id number] ADV[facility]AGE MEDICARE ADVANTAGE Advance Directives For more information, please contact: [phone] Documents on File Type Date Recorded 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 Expl anation ADVANCE DIRECTIVE 05/12/2022 POWER OF A TTORNEY-MEDICAL ADVANCE DIRECTIVE 05/12/2022 POWER OF A TTORNEY-MEDICAL * Full Code (Latest Code Status on File) Date Activated Date Inactivated Comments 05/08/2019 9:18 AM 05/08/2019 3:50 PM * Full Code Date Activated Date Inactivated Comments 05/08/2019 9:18 AM 05/08/2019 9:18 AM 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
--- OUTSIDE RECORDS SUMMARY | 2024-09-15 07:19 | XMS_ITS | Data Portability ---
Author Organization [place] [facility] [employer] Address [address] [place] [address] Care Team Providers Care Radio Reporter Name Role Phone XIMENA [facility] OTHER Assessment Encounter Date Assessment Date Assessment LastModified by Organization Details LastModified Time 08/16/2022 08/16/2022 Medication Changes Increase Sertraline to 100 mg daily LILI obtained. Records requested. labs to eval levels. Signs and symptoms of when to seek further care reviewed with patient/caregiver /family/facility staff. Patient to follow up with primary care provider or return to clinic for any worsening signs and symptoms. Always present to ER or Urgent Care with any progression of/alarming symptoms, significant changes in symptoms or any concerning or urgent matters. Patient/caregiver /family/facility staff verbalized agreement and understanding of treatment plan. F/U 4 weeks, sooner if needed My total encounter time was 75 minutes which was spent in the activities documented in the note. This includes time spent prior to the visit, performing a medically appropriate examination with evaluation, and after the visit in direct care of the patient (history and exam; ordering prescriptions/lab s/imaging/home health/therapy/sp ecialists; communicating results to patient and/or other relative individuals; counseling/educat ing patient; documenting clinical information in patient s chart; coordination of care for the patient). This time does not include time spent in any separately reportable services. [email or web address] Not available 08/16/2022 13:42:43 09/13/2022 09/13/2022 Medication Changes phq9: 0 mini-co Wellness Visit for Adults A wellness visit is when you see your healthcare provider to get screened for health problems. Your healthcare provider will also give you advice on how to stay healthy. Write down your questions so you remember to ask them. Ask your healthcare provider how often you should have a wellness visit. What happens at a wellness visit: Your healthcare provider will ask about your health, and your family history of health problems. This includes high blood pressure, heart disease, and cancer. He or she will ask if you have symptoms that concern you, if you smoke, and about your mood. You may also be asked about your intake of medicines, supplements, food, and alcohol. Any of the following may be done: Your weight will be checked. Your height may also be checked so your body mass index (BMI) can be calculated. Your BMI shows if you are at a healthy weight. Your blood pressure and heart rate will be checked. Your temperature may also be checked. Blood and urine tests may be done. Blood tests may be done to check your cholesterol levels. Abnormal cholesterol levels increase your risk for heart disease and stroke. You may also need a blood or urine test to check for diabetes if you are at increased risk. Urine tests may be done to look for signs of an infection or kidney disease. A physical exam includes checking your heartbeat and lungs with a stethoscope. Your healthcare provider may also check your skin to look for sun damage. Screening tests may be recommended. A screening test is done to check for diseases that may not cause symptoms. The screening tests you may need depend on your age, gender, family history, and lifestyle habits. For example, colorectal screening may be recommended if you are 50 years old or older. Screening tests you need if you are a woman: A Pap smear is used to screen for cervical cancer. Pap smears are usually done every 3 to 5 years depending on your age. You may need them more often if you have had abnormal Pap smear test results in the past. Ask your healthcare provider how often you should have a Pap smear. A mammogram is an x-ray of your breasts to screen for breast cancer. Experts recommend mammograms every 2 years starting at age 50 years. You may need a mammogram at age 49 years or younger if you have an increased risk for breast cancer. Talk to your healthcare provider about when you should start having mammograms and how often you need them. Vaccines you may need: Get an influenza vaccine every year. The influenza vaccine protects you from the flu. Several types of viruses cause the flu. The viruses change management facilitator time, so new vaccines are made each year. Get a tetanus-diphtheri a (Td) booster vaccine every 10 years. This vaccine protects you against tetanus and diphtheria. Tetanus is a severe infection that may cause painful muscle spasms and lockjaw. Diphtheria is a severe bacterial infection that causes a thick covering in the back of your mouth and throat. Get a human papillomavirus (HPV) vaccine if you are female and aged 19 to 26 or male 19 to 21 and never received it. This vaccine protects you from HPV infection. HPV is the most common infection spread by sexual contact. HPV may also cause vaginal, penile, and anal cancers. Get a pneumococcal vaccine if you are aged 65 years or older. The pneumococcal vaccine is an injection given to protect you from pneumococcal disease. Pneumococcal disease is an infection caused by pneumococcal bacteria. The infection may cause pneumonia, meningitis, or an ear infection. Get a shingles vaccine if you are aged 60 or older, even if you have had shingles before. The shingles vaccine is an injection to protect you from the varicella-zoster virus. This is the same virus that causes chickenpox. Shingles is a painful rash that develops in people who had chickenpox or have been exposed to the virus. How to eat healthy: My Plate is a model for planning healthy meals. It shows the types and amounts of foods that should go on your plate. Fruits and vegetables make up about half of your plate, and grains and protein make up the other half. A serving of dairy is included on the side of your plate. The amount of calories and serving sizes you need depends on your age, gender, weight, and height. Examples of healthy foods are listed below: Eat a variety of vegetables such as dark green, red, and orange vegetables. You can also include canned vegetables low in sodium (salt) and frozen vegetables without added butter or sauces. Eat a variety of fresh fruits , canned fruit in 100% juice, frozen fruit, and dried fruit. Include whole grains. At least half of the grains you eat should be whole grains. Examples include whole-wheat bread, wheat pasta, brown rice, and whole-grain cereals such as oatmeal. Eat a variety of protein foods such as seafood (fish and shellfish), lean meat, and poultry without skin (turkey and chicken). Examples of lean meats include pork leg, shoulder, or tenderloin, and beef round, sirloin, tenderloin, and extra lean ground beef. Other protein foods include eggs and egg substitutes, beans, peas, soy products, nuts, and seeds. Choose low-fat dairy products such as skim or 1% milk or low-fat yogurt, cheese, and cottage cheese. Limit unhealthy fats such as butter, hard margarine, and shortening. Exercise: Exercise at least 30 minutes per day on most days of the week. Some examples of exercise include walking, biking, dancing, and swimming. You can also fit in more physical activity by taking the stairs instead of the elevator or parking farther away from stores. Include muscle strengthening activities 2 days each week. Regular exercise provides many health benefits. It helps you manage your weight, and decreases your risk for type 2 diabetes, heart disease, stroke, and high blood pressure. Exercise can also help improve your mood. Ask your healthcare provider about the best exercise plan for you. General health and safety guidelines: Do not smoke. Nicotine and other chemicals in cigarettes and cigars can cause lung damage. Ask your healthcare provider for information if you currently smoke and need help to quit. E-cigarettes or smokeless tobacco still contain nicotine. Talk to your healthcare provider before you use these products. Limit alcohol. A drink of alcohol is 12 ounces of beer, 5 ounces of wine, or 1 ounces of liquor. Lose weight, if needed. Being overweight increases your risk of certain health conditions. These include heart disease, high blood pressure, type 2 diabetes, and certain types of cancer. Protect your skin. Do not sunbathe or use tanning beds. Use sunscreen with a SPF 15 or higher. Apply sunscreen at least 15 minutes before you go outside. Reapply sunscreen every 2 hours. Wear protective clothing, hats, and sunglasses when you are outside. Drive safely. Always wear your seatbelt. Make sure everyone in your car wears a seatbelt. A seatbelt can save your life if you are in an accident. Do not use your cell phone when you are driving. This could distract you and cause an accident. looseleaf binder coverer if you need to make a call or send a text message. Practice safe sex. Use latex condoms if are sexually active and have more than one partner. Your healthcare provider may recommend screening tests for sexually transmitted infections (STIs). Wear helmets, lifejackets, and protective gear. Always wear a helmet when you ride a bike or motorcycle, go skiing, or play sports that could cause a head injury. Wear protective equipment when you play sports. Wear a lifejacket when you are on a boat or doing water sports. Signs and symptoms of when to seek further care reviewed with patient/caregiver /family/facility staff. Patient to follow up with primary care provider or return to clinic for any worsening signs and symptoms. Always present to ER or Urgent Care with any progression of/alarming symptoms, significant changes in symptoms or any concerning or urgent matters. Patient/caregiver /family/facility staff verbalized agreement and understanding of treatment plan. F/U 12 weeks, sooner if needed [email or web address] Not available 09/13/2022 10:18:23 01/03/2023 01/03/2023 Medication Changes labs to eval levels Signs and symptoms of when to seek further care reviewed with patient/caregiver /family/facility staff. Patient to follow up with primary care provider or return to clinic for any worsening signs and symptoms. Always present to ER or Urgent Care with any progression of/alarming symptoms, significant changes in symptoms or any concerning or urgent matters. Patient/caregiver /family/facility staff verbalized agreement and understanding of treatment plan. F/U 4 weeks, sooner if needed Not available 01/03/2023 15:57:51 Plan of Treatment Reminders Order Date Submit Date Provider Last Modified By Organization Details Last Modified Time Details Appointments None recorded. Lab HbA1c (hemoglobin A1c), blood [address], [place], [address], 3 16:48:39 urinalysis, dipstick, reflex micro [address], [place], [address], 3 08:22:16 albumin, serum or plasma [email or web address], [place], [address], 3 06:33:02 unlisted lab - urinary tract infection (UTI) - bacterial/f ungal [email or web address], [place], [address], 3 06:13:46 CMP, serum or plasma [address], [place], [address], 3 16:48:40 unlisted lab - complete blood count with auto diff* [address], [place], [address], 3 16:48:38 magnesium, serum or plasma [address], [place], [address], 3 16:48:42 T4, free, serum [address], [place], [address], 3 16:48:41 TSH, serum or plasma [address], [place], [address], 3 16:48:43 unlisted lab - triiodothyr onine, free (free T3) (A) [address], [place], [address], 3 16:32:52 lipid panel, serum [address], [place], [address], 3 16:48:41 HbA1c (hemoglobin A1c), blood [address] , [place], [address], 3 08:13:50 microalbumi n, urine [address], [address] [place] [address] , [place], [address], 3 14:49:26 urinalysis complete, reflex culture [address], [address] [place] [address] [place], [address], 3 09:04:14 CMP, serum or plasma 2022 023 [facility], [address] [place] [address] [place], [address], 3 08:13:50 CBC 2022 023 [facility], [address] [place] [address] [place], [address], 3 08:13:50 magnesium, blood 2022 023 [facility], [address] [place] [address] [place], [address], 3 08:13:50 lipid panel, blood 2022 023 [facility], [address] [place] [address] [place], [address], 3 08:13:50 TSH + free T4, serum 2022 023 [facility], [address] [place] [address] [place], [address], 3 08:13:50 Referral None recorded. Procedures None recorded. Surgeries None recorded. Imaging None recorded. Medication Orders sertraline 100 mg tablet 2022 023 BRIGHT Not available 13:46:33 Patient TargetsNo targets recorded. Patient Instructions Encounter Date Encounter Id Patient Instructions Last Modified By Organization Details Last Modified Time 08/16/2022 [id number] care plan* Not available 08/04 13:44:25 instructions to assisted living home* - Stop Sertraline 50 mg Sertraline 100 mg qD [email or web address] Not available 08/16/2022 14:00:50 09/13/2022 [id number] care plan* Not available 09/04 10:18:22 fall risk screening* [email or web address] Not available 09/13/2022 10:18:22 Reason for Referral None Reported. Results Created Date Observation Date Name Description Value Unit Range Abnormal Flag Note LastModifiedBy Organization Detail LastModifiedTime 11/17/1911/16/2022 URINA LYSIS REFLE X TO MICRO SCOPI C* urine color YELLOW yellow Not Available [facility] [address], [place], [address], 11/19/2022 12:12:31 11/17/1911/16/2022 URINA LYSIS REFLE X TO MICRO SCOPI C* urine clarity SL CLOUDY clear abnormal Not Available [facility] [address], [place], [address], 11/19/2022 12:12:31 11/17/1911/16/2022 URINA LYSIS REFLE X TO MICRO SCOPI C* urine glucose NEGATI VE mg/dL negati ve Not Available [facility] [address], [place], [address], 11/19/2022 12:12:31 11/17/19 23 11/16/2022 URINA LYSIS REFLE X TO MICRO SCOPI C* urine bilirubin NEGATI VE negati ve Not Available [facility] [address], [place], [address], 11/19/2022 12:12:31 11/17/1911/16/2022 URINA LYSIS REFLE X TO MICRO SCOPI C* urine ketones NEGATI VE mg/dL negati ve Not Available [facility] [address], [place], [address], 11/19/2022 12:12:31 11/17/1911/16/2022 URINA LYSIS REFLE X TO MICRO SCOPI C* urine specific gravity 1.020 1.002- 1.030 Not Available [facility] [address], [place], [address], 11/19/2022 12:12:31 11/17/1911/16/2022 URINA LYSIS REFLE X TO MICRO SCOPI C* urine blood NEGATI VE negati ve Not Available [facility] [address], [place], [address], 11/19/2022 12:12:31 11/17/1911/16/2022 URINA LYSIS REFLE X TO MICRO SCOPI C* urine pH 6.0 5.0-8. 0 Not Available [facility] [address], [place], [address], 11/19/2022 12:12:31 11/17/19 23 11/16/2022 URINA LYSIS REFLE X TO MICRO SCOPI C* urine protein NEGATI VE mg/dL negati ve Not Available [facility] [address], [place], [address], 11/19/2022 12:12:31 11/17/1911/16/2022 URINA LYSIS REFLE X TO MICRO SCOPI C* urine urobilinogen 0.2 eu/dL 0.2-1. 0 Not Available [facility] [address], [place], [address], 11/19/2022 12:12:31 11/17/1911/16/2022 URINA LYSIS REFLE X TO MICRO SCOPI C* urine nitrites NEGATI VE negati ve Not Available [facility] [address], [place], [address], 11/19/2022 12:12:31 11/17/19 23 11/16/2022 URINA LYSIS REFLE X TO MICRO SCOPI C* urine leukocytes SMALL negati ve abnormal Not Available [facility] [address], [place], [address], 11/19/2022 12:12:31 11/17/19 23 11/16/2022 URINE MICRO SCOPI C* white blood cells (WBC) 0-3/HP F /hpf 0-3/hp f Refer ence Range s Femal e: 0-5/H PF Male: 0-3/H PF Not Available [facility] [address], [place], [address], 11/19/2022 18:32:45 11/17/19 23 11/16/2022 URINE MICRO SCOPI C* red blood cells (RBC) 0-2/HP F /hpf 0-2/hp f Not Available [facility] [address], [place], [address], 11/19/2022 18:32:45 11/17/19 23 11/16/2022 URINE MICRO SCOPI C* epithelial cells 0-5/HP F /hpf 0-5/hp f Not Available [facility] [address], [place], [address], 11/19/2022 18:32:45 11/17/19 23 11/16/2022 URINE MICRO SCOPI C* bacteria 1+ none abnormal Not Available [facility] [address], [place], [address], 11/19/2022 18:32:45 01/05/20 23 01/04/2023 COMPL ETE BLOOD COUNT WITH AUTO DIFF* WBC 8.25 10E3/ uL 4.50-1 1.50 Not Available [facility] [address], [place], [address], 01/06/2023 16:48:37 01/05/20 23 01/04/2023 COMPL ETE BLOOD COUNT WITH AUTO DIFF* RBC 5.28 10E6/ uL 4.00-5 .40 Not Available [facility] [address], [place], [address], 01/06/2023 16:48:37 01/05/20 23 01/04/2023 COMPL ETE BLOOD COUNT WITH AUTO DIFF* HGB 13.8 g/dL 12.0-1 5.0 Not Available [facility] [address], [place], [address], 01/06/2023 16:48:37 01/05/20 23 01/04/2023 COMPL ETE BLOOD COUNT WITH AUTO DIFF* HCT 52.9 % 35.0-4 9.0 high Not Available [facility] [address], [place], [address], 01/06/2023 16:48:37 01/05/20 23 01/04/2023 COMPL ETE BLOOD COUNT WITH AUTO DIFF* MCV 100 fL 80-100 Not Available [facility] [address], [place], [address], 01/06/2023 16:48:37 01/05/20 23 01/04/2023 COMPL ETE BLOOD COUNT WITH AUTO DIFF* MCH 26 pg 26-32 Not Available [facility] [address], [place], [address], 01/06/2023 16:48:37 01/05/20 23 01/04/2023 COMPL ETE BLOOD COUNT WITH AUTO DIFF* MCHC 26 g/dL 32-36 low Not Available [facility] [address], [place], [address], 01/06/2023 16:48:37 01/05/20 23 01/04/2023 COMPL ETE BLOOD COUNT WITH AUTO DIFF* RDW 17.5 % 11.5-1 4.5 high Not Available [facility] [address], [place], [address], 01/06/2023 16:48:37 01/05/20 23 01/04/2023 COMPL ETE BLOOD COUNT WITH AUTO DIFF* plt 213 10E3/ uL 150-45 0 Not Available [facility] [address], [place], [address], 01/06/2023 16:48:37 01/05/20 23 01/04/2023 COMPL ETE BLOOD COUNT WITH AUTO DIFF* neut% 64.1 % 50.0-7 0.0 Not Available [facility] [address], [place], [address], 01/06/2023 16:48:37 01/05/20 23 01/04/2023 COMPL ETE BLOOD COUNT WITH AUTO DIFF* lymph% 24.5 % 18.0-4 2.0 Not Available [facility] [address], [place], [address], 01/06/2023 16:48:37 01/05/20 23 01/04/2023 COMPL ETE BLOOD COUNT WITH AUTO DIFF* mono% 7.5 % 2.0-11 .0 Not Available [facility] [address], [place], [address], 01/06/2023 16:48:37 01/05/20 23 01/04/2023 COMPL ETE BLOOD COUNT WITH AUTO DIFF* eos% 3.0 % 1.0-3. 0 Not Available [facility] [address], [place], [address], 01/06/2023 16:48:37 01/05/20 23 01/04/2023 COMPL ETE BLOOD COUNT WITH AUTO DIFF* baso% 0.5 % 0.0-2. 0 Not Available [facility] [address], [place], [address], 01/06/2023 16:48:37 01/05/20 23 01/04/2023 COMPL ETE BLOOD COUNT WITH AUTO DIFF* Ig% 0.4 % 0.0-0. 6 Not Available [facility] [address], [place], [address], 01/06/2023 16:48:37 01/05/20 23 01/04/2023 COMPL ETE BLOOD COUNT WITH AUTO DIFF* neut# 5.29 10E3/ uL 2.30-8 .10 Not Available [facility] [address], [place], [address], 01/06/2023 16:48:37 01/05/20 23 01/04/2023 COMPL ETE BLOOD COUNT WITH AUTO DIFF* lymph# 2.02 10E3/ uL 0.80-4 .80 Not Available [facility] [address], [place], [address], 01/06/2023 16:48:37 01/05/20 23 01/04/2023 COMPL ETE BLOOD COUNT WITH AUTO DIFF* mono# 0.62 10E3/ uL 0.45-1 .30 Not Available [facility] [address], [place], [address], 01/06/2023 16:48:37 01/05/20 23 01/04/2023 COMPL ETE BLOOD COUNT WITH AUTO DIFF* eos# 0.25 10E3/ uL 0.00-0 .40 Not Available [facility] [address], [place], [address], 01/06/2023 16:48:37 01/05/20 23 01/04/2023 COMPL ETE BLOOD COUNT WITH AUTO DIFF* baso# 0.04 10E3/ uL 0.00-0 .10 Not Available [facility] [address], [place], [address], 01/06/2023 16:48:37 01/05/20 23 01/04/2023 COMPL ETE BLOOD COUNT WITH AUTO DIFF* Ig# 0.03 10E3/ uL 0.00-0 .09 Not Available [facility] [address], [place], [address], 01/06/2023 16:48:37 01/05/20 23 01/04/2023 COMPL ETE BLOOD COUNT WITH AUTO DIFF* reflex Smear Review Not Available [facility] [address], [place], [address], 01/06/2023 16:48:37 01/05/20 23 01/04/2023 HEMOG LOBIN A1C* hemoglobin A1C 7.2 % 3.7-6. 2 high Not Available [facility] [address], [place], [address], 01/06/2023 16:48:39 01/05/20 23 01/04/2023 HEMOG LOBIN A1C* EAG 160 mg/dL Mari l: 69-11 4 mg/dL Predi abete s: 117-1 37 mg/dL Diabe jeanine: 140 mg/dL or Great er Not Available [facility] [address], [place], [address], 01/06/2023 16:48:39 01/05/20 23 01/04/2023 COMPR EHENS SUKH METAB OLIC PANEL * glucose 163 mg/dL 82-115 high Not Available [facility] [address], [place], [address], 01/06/2023 16:48:39 01/05/20 23 01/04/2023 COMPR EHENS SUKH METAB OLIC PANEL * BUN 17 mg/dL 8-23 Not Available [facility] [address], [place], [address], 01/06/2023 16:48:39 01/05/20 23 01/04/2023 COMPR EHENS SUKH METAB OLIC PANEL * calcium 9.0 mg/dL 8.8-10 .2 Not Available [facility] [address], [place], [address], 01/06/2023 16:48:39 01/05/20 23 01/04/2023 COMPR EHENS SUKH METAB OLIC PANEL * creatinine 0.85 mg/dL 0.60-1 .20 Not Available [facility] [address], [place], [address], 01/06/2023 16:48:39 01/05/20 23 01/04/2023 COMPR EHENS SUKH METAB OLIC PANEL * egfraa >60.00 mL/mi n/1.7 3m2 >60.00 Not Available [facility] [address], [place], [address], 01/06/2023 16:48:39 01/05/20 23 01/04/2023 COMPR EHENS SUKH METAB OLIC PANEL * egfrnaa >60.00 mL/mi n/1.7 3m2 >60.00 Not Available [facility] [address], [place], [address], 01/06/2023 16:48:39 01/05/20 23 01/04/2023 COMPR EHENS SUKH METAB OLIC PANEL * sodium 144 mmol/ L 136-14 5 Not Available [facility] [address], [place], [address], 01/06/2023 16:48:39 01/05/20 23 01/04/2023 COMPR EHENS SUKH METAB OLIC PANEL * potassium 4.2 mmol/ L 3.5-5. 1 Not Available [facility] [address], [place], [address], 01/06/2023 16:48:39 01/05/20 23 01/04/2023 COMPR EHENS SUKH METAB OLIC PANEL * chloride 103 mEq/L 98-107 Not Available [facility] [address], [place], [address], 01/06/2023 16:48:39 01/05/20 23 01/04/2023 COMPR EHENS SUKH METAB OLIC PANEL * carbon dioxide 32 mmol/ L 23-30 high Not Available [facility] [address], [place], [address], 01/06/2023 16:48:39 01/05/20 23 01/04/2023 COMPR EHENS SUKH METAB OLIC PANEL * total protein 7.0 g/dL 6.2-8. 1 Not Available [facility] [address], [place], [address], 01/06/2023 16:48:39 01/05/20 23 01/04/2023 COMPR EHENS SUKH METAB OLIC PANEL * albumin 3.7 g/dL 3.2-4. 6 Not Available [facility] [address], [place], [address], 01/06/2023 16:48:39 01/05/20 23 01/04/2023 COMPR EHENS SUKH METAB OLIC PANEL * globulin 3.3 g/dL 2.3-3. 4 Not Available [facility] [address], [place], [address], 01/06/2023 16:48:39 01/05/20 23 01/04/2023 COMPR EHENS SUKH METAB OLIC PANEL * A/G ratio 1.1 g/dL 0.8-2. 0 Not Available [facility] [address], [place], [address], 01/06/2023 16:48:39 01/05/20 23 01/04/2023 COMPR EHENS SUKH METAB OLIC PANEL * alkaline phosphatase 99 U/L 30-120 Not Available [facility] [address], [place], [address], 01/06/2023 16:48:39 01/05/20 23 01/04/2023 COMPR EHENS SUKH METAB OLIC PANEL * ALT (SGPT) 21 U/L 10-28 Not Available [facility] [address], [place], [address], 01/06/2023 16:48:39 01/05/20 23 01/04/2023 COMPR EHENS SUKH METAB OLIC PANEL * AST (SGOT) 14 U/L 9-36 Not Available [facility] [address], [place], [address], 01/06/2023 16:48:39 01/05/20 23 01/04/2023 COMPR EHENS SUKH METAB OLIC PANEL * bilirubin, total 0.85 mg/dL 0.20-1 .10 Not Available [facility] [address], [place], [address], 01/06/2023 16:48:39 01/05/20 23 01/04/2023 FREE T4* FT4 0.97 NG/mL 0.80-2 .70 Not Available [facility] [address], [place], [address], 01/06/2023 16:48:40 01/05/20 23 01/04/2023 LIPID PANEL * cholesterol 159 mg/dL <200 Natio nal Johanny stero l Educa tion Progr am (NCEP ) guide lines : Soco able: <200 mg/dL Borde rline : 200-2 39 mg/dL High: =>240 mg/dL Not Available [facility] [address], [place], [address], 01/06/2023 16:48:41 01/05/20 23 01/04/2023 LIPID PANEL * LDL 86 mg/dL <100 Natio nal Johanny stero l Educa tion Progr am (NCEP ) Guide lines : Optim al: <100 mg/dL Near Optim al: 100 - 129 mg/dL Borde rline : 130 - 159 mg/dL High: 160 - 189 mg/dL Very High: =>190 mg/dL Not Available [facility] [address], [place], [address], 01/06/2023 16:48:41 01/05/20 23 01/04/2023 LIPID PANEL * HDL 50 mg/dL 40-59 Natio nal Johanny stero l Educa tion Progr am (NCEP ) guide lines : Low: <40 mg/dL High: =>60 mg/dL Not Available [facility] [address], [place], [address], 01/06/2023 16:48:41 01/05/20 23 01/04/2023 LIPID PANEL * triglyceride s 135 mg/dL <150 Natio nal Johanny stero l Educa tion Progr am (NCEP ) guide lines : Mari l: <150 mg/dL Borde rline : 150-1 99 mg/dL High: 200-4 99 mg/dL Very High: =>500 mg/dL Not Available [facility] [address], [place], [address], 01/06/2023 16:48:41 01/05/20 23 01/04/2023 LIPID PANEL * VLDL 27 mg/dL <30 Not Available [facility] [address], [place], [address], 01/06/2023 16:48:41 01/05/20 23 01/04/2023 MAGNE SIUM* magnesium 1.80 mg/dL 1.60-2 .40 Not Available [facility] [address], [place], [address], 01/06/2023 16:48:42 01/05/2001/04/2023 TSH* TSH 2.985 uIU/m L 0.500- 8.900 Not Available [facility] [address], [place], [address], 01/06/2023 16:48:43 01/05/20 23 01/04/2023 TRIIO DOTHY FRANCISCO E, FREE (FREE T3) (A) triiodothyro nine, free (free T3) 2.9 pg/mL 2.5-4. 3 REFER ENCE INTER CHUCKY: Triio dothy francisco e, Free (Free T3) Acces s compl ete set of age- and/o r gende r-spe cific refer ence inter vals for this test in the [facility] Labor atory Test Direc tor ([facility] lab.c om). Perfo rmed By: [facility] Labor atori es [address] [place] [address] Labor atory Dire tor: Jese godinez MD, PhD ELISABETHSHEEBA Sammy r: [id number] Not Available [facility] [address], [place], [address], 01/08/2023 16:32:52 01/07/20 23 01/06/2023 URINA LYSIS REFLE X TO MICRO SCOPI C* urine color YELLOW yellow Not Available [facility] [address], [place], [address], 01/10/2023 08:22:16 01/07/20 23 01/06/2023 URINA LYSIS REFLE X TO MICRO SCOPI C* urine clarity CLEAR clear Not Available [facility] [address], [place], [address], 01/10/2023 08:22:16 01/07/20 23 01/06/2023 URINA LYSIS REFLE X TO MICRO SCOPI C* urine glucose NEGATI VE mg/dL negati ve Not Available [facility] [address], [place], [address], 01/10/2023 08:22:16 01/07/20 23 01/06/2023 URINA LYSIS REFLE X TO MICRO SCOPI C* urine bilirubin NEGATI VE negati ve Not Available [facility] [address], [place], [id number], 01/10/2023 08:22:16 01/07/20 23 01/06/2023 URINA LYSIS REFLE X TO MICRO SCOPI C* urine ketones NEGATI VE mg/dL negati ve Not Available [facility] [address], [place], [address], 01/10/2023 08:22:16 01/07/20 23 01/06/2023 URINA LYSIS REFLE X TO MICRO SCOPI C* urine specific gravity refractomete r 1.020 1.002- 1.030 Speci fic Gravi ty resul t confi rmed by smiley benites Not Available [facility] [address], [place], [address], 01/10/2023 08:22:16 01/07/20 23 01/06/2023 URINA LYSIS REFLE X TO MICRO SCOPI C* urine blood NEGATI VE negati ve Not Available [facility] [address], [place], [address], 01/10/2023 08:22:16 01/07/20 23 01/06/2023 URINA LYSIS REFLE X TO MICRO SCOPI C* urine pH 5.5 5.0-8. 0 Not Available [facility] [address], [place], [address], 01/10/2023 08:22:16 01/07/20 23 01/06/2023 URINA LYSIS REFLE X TO MICRO SCOPI C* urine protein NEGATI VE mg/dL negati ve Not Available [facility] [address], [place], [address], 01/10/2023 08:22:16 01/07/20 23 01/06/2023 URINA LYSIS REFLE X TO MICRO SCOPI C* urine urobilinogen 0.2 eu/dL 0.2-1. 0 Not Available [facility] [address], [place], [address], 01/10/2023 08:22:16 01/07/20 23 01/06/2023 URINA LYSIS REFLE X TO MICRO SCOPI C* urine nitrites NEGATI VE negati ve Not Available [facility] [address], [place], [address], 01/10/2023 08:22:16 01/07/20 23 01/06/2023 URINA LYSIS REFLE X TO MICRO SCOPI C* urine leukocytes NEGATI VE negati ve Not Available [facility] [address], [place], [address], 01/10/2023 08:22:16 Result Notes None recorded. 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 3 20:19:12 Hypothyroidism 11659362 Active 2022 Crystal Compa Lencho, MECHANIC MARINE ENGINE-BC, PMHNP-BC [address] [place], [address], [facility] 3 20:19:12 Hyperlipidemia 06676750 Active 2022 Crystal Compa Lencho, MECHANIC MARINE ENGINE-BC, PMHNP-BC [address] [place], [address], [facility] 3 20:19:12 Essential hypertension 81724313 Active 2022 Crystal Compa Lencho, MECHANIC MARINE ENGINE-BC, PMHNP-BC [address] [place], [address], [facility] 3 20:19:12 Generalized anxiety disorder 07975786 Active 2022 Crystal Compa Lencho, MECHANIC MARINE ENGINE-BC, PMHNP-BC [address] [place], [address], [facility] 20:19:12 Problem Notes None recorded. Procedures Surgical History Date Name Laterality Status Provider Name and Address Organization Details Recorded Time 12/07/19 Cerumen Removal cancelled Mervat Pinzon [facility] 11/30/2022 15:16:28 11/30/19 Cerumen Removal cancelled Lizzie Rivera. Stone, MECHANIC MARINE ENGINE-BC, PMHNP-BC [address], [place], [address] [place] [address], [facility] [place] [facility] 11/28/2022 14:52:13 09/14/19 23 Cerumen Removal completed Crystal L. Lencho, MECHANIC MARINE ENGINE-BC, PMHNP-BC [address], [place], [address] [place] [address], [facility] [place] [facility] 09/06/2022 07:02:15 08/17/19 23 Cerumen Removal completed Lizzie Musa, MECHANIC MARINE ENGINE-BC, PMHNP-BC [address], [place], [address] [place] [address], [facility] [place] [facility] 08/16/2022 13:42:14 hysterectomy completed Antoinette Brody [facility] 08/10/2022 14:44:10 Breast reduction completed Antoinette Brody [facility] 08/10/2022 14:44:21 replacement of bilateral knee joints completed Antoinette Brody [facility] 08/10/2022 14:44:35 arthroplasty of knee completed Analygretchen Childers [facility] 09/13/2022 15:17:13 reduction mammoplasty completed Analyn Childers [facility] 09/13/2022 15:17:30 augmentation mammoplasty completed Analyn Childers [facility] 09/13/2022 15:17:47 Imaging Results None recorded. Procedure Notes None recorded. Medical Equipment None Reported. Allergies Allergen ID Allergen Name Allergen Category Reaction Reaction Severity Criticality Documentation Date Start Date Code Code System Note Provider Name and Address Organization Details Recorded Time 5691 metformin medicatio n Not available Not available Not available 06/21/2022 6809 RxNorm Antoinette Brody [facility], [facility] 09:57:32 5692 Product containin g penicilli n (product) medicatio n Not available Not available Not available 06/21/2022 16761 8001 OMED RUBY [facility] 3 09:57:48 5693 Substance with sulfonami de structure and antibacte rial mechanism of action (substanc e) medicatio n Not available Not available Not available 06/21/2022 88162 8003 RUBY [facility] 3 09:58:10 Medications Name Sig Start Date Stop Date Status Note LastModified by Organization Details LastModified Time atorvastati n 40 mg tablet TAKE ONE TABLET BY MOUTH DAILY active Not Available Not Available No t Available atorvastati n 20 mg tablet Take 1 tablet every day by oral route. 08/23 completed Not Available Not Available Not Available ondansetron HCl 4 mg tablet 06/21 completed Not Available Not Available Not Available prednisone 20 mg tablet TAKE 3 TABLETS BY MOUTH DAILY FOR 5 DAYS 06/21 completed Not Available Not Available Not Available sertraline 100 mg tablet TAKE ONE TABLET BY MOUTH DAILY active Not Available Not Available No t Available lamotrigine 25 mg tablet TAKE ONE TABLET BY MOUTH TWICE A DAY active Not Available Not Available No t Available levothyroxi ne 88 mcg tablet Take 1 tablet every day by oral route. active Not Available Not Available No t Available Blood Glucose Meter kit USE DAILY FOR MONITORIN G DIABETES active Not Available Not Available No t Available benzonatate 100 mg capsule Take 1 capsule 3 times a day by oral route. 01/02 completed Not Available Not Available Not Available hydrochloro thiazide 25 mg tablet Take 1 tablet every day by oral route. active Not Available Not Available No t Available albuterol sulfate HFA 90 mcg/actuati on aerosol inhaler INHALE 1 TO 2 PUFFS BY MOUTH EVERY 6 HOURS NEEDED FOR WHEEZING 06/21 completed Not Available Not Available Not Available ondansetron 4 mg disintegrat ing tablet Place 1 tablet every 6 hours by transling ual route. 01/02 completed Not Available Not Available Not Available sertraline 50 mg tablet Take 1 tablet every day by oral route. 08/16 completed Not Available Not Available Not Available repaglinide 1 mg tablet Take 1 tablet 3 times a day by oral route. active Not Available Not Available No t Available Multivitami n 50 Plus tablet Take 1 tablet every day by oral route. active Not Available Not Available No t Available metoprolol tartrate 25 mg tablet Take 1 tablet twice a day by oral route. active Not Available Not Available No t Available nitrofurant oin monohydrate /macrocryst als 100 mg capsule Take 1 capsule every 12 hours by oral route for 7 days. 01/02 completed Not Available Not Available Not Available One Touch Test Strips USE TO CHECK BLOOD GLUCOSE ONE TIME DAILY 01/02 completed Not Available Not Available Not Available Januvia 100 mg tablet Take 1 tablet every day by oral route. active Not Available Not Available No t Available OneTouch Verio test strips USE TO CHECK BLOOD SUGAR ONCE DAILY active Not Available Not Available No t Available lancets 30 gauge USE TO CHECK BLOOD GLUCOSE ONCE DAILY 01/02 completed Not Available Not Available Not Available PreserVisio n AREDS-2 250 mg-90 mg-40 mg-1 mg capsule active Not Available Not Available N ot Available albuterol sulfate 90 mcg/actuati on breath activated powder inhaler Inhale 2 puffs every 6 hours by inhalatio n route as needed. active Not Available Not Available No t Available OneTouch Delica Plus Lancet 33 gauge Take 1 each every day by miscell. route for 90 days. active Not Available Not Available No t Available vit C 250 mg-E 90 mg-zinc 40 mg-copper 1 mg-lutein-z eaxan chew tablet Take 1 tablet twice a day by oral route. 09/27 completed Not Available Not Available Not Available Vitals Date Recorded Heart rate Respiratory rate Oxygen saturation Oxygen saturation in Arterial blood by Pulse oximetry Body temperature Pain severity - 0-10 verbal numeric rating [Score] - Reported Body weight Systolic blood pressure Diastolic blood pressure Provider Name and Address Organization Details Last Updated DateTime 3 69 /min 16 /min 98 % 98 % 97.3 [degF] 0 39185.6 4 g 120 mm[Hg] 78 mm[Hg] Claudia BELTRAN - [facility] [place] 3 10:26:14 Date Recorded Body weight Heart rate Respiratory rate Oxygen saturation Oxygen saturation in Arterial blood by Pulse oximetry Body temperature Pain severity - 0-10 verbal numeric rating [Score] - Reported Systolic blood pressure Diastolic blood pressure Provider Name and Address Organization Details Last Updated DateTime 3 44269.5 1 g 64 /min 16 /min 98 % 98 % 97.5 [degF] 0 118 mm[Hg] 78 mm[Hg] Claudia Thrasher [facility] 3 11:59:49 Date Recorded Body mass index (BMI) Body height Provider Name and Address Organization Details Last Updated DateTime 09/13/2022 34.1 kg/m2 152.4 cm Lizzie Musa, MECHANIC MARINE ENGINE-BC, PMHNP-BC [address] [place], [address], [facility] 09/13/2022 12:41:23 Date Recorded Body height Provider Name an d Address Organization Details Last Updated DateTime 11/29/2022 152.4 cm Claudia Thrasher [facility] 11/29/2022 16:44:54 Date Recorded Body height Heart rate Respiratory rate Oxygen saturation Oxygen saturation in Arterial blood by Pulse oximetry Body temperature Pain severity - 0-10 verbal numeric rating [Score] - Reported Body mass index (BMI) Body weight Systolic blood pressure Diastolic blood pressure Provider Name and Address Organization Details Last Updated DateTime 3 152.4 cm 22 /min 18 /min 94 % 94 % 97.9 [degF] 0 34.7 kg/m2 75453 g 158 mm[Hg] 80 mm[Hg] Fer Joe [facility] 3 10:12:16 Date Recorded Body height Heart rate Respiratory rate Oxygen saturation Oxygen saturation in Arterial blood by Pulse oximetry Body temperature Systolic blood pressure Diastolic blood pressure Provider Name and Address Organization Details Last Updated DateTime 3 152.4 cm 68 /min 18 /min 94 % 94 % 97.5 [degF] 124 mm[Hg] 74 mm[Hg] Fer Joe [facility] 3 11:29:13 Social History Question Answer Notes LastModified by Organizat ion Details LastModified Time Tobacco Smoking Status [facility] 08/10/2022 14:52:46 Do You Have An Advance Directive? Yes [email or web address] Information not available 08/10/2022 What Is Your Level Of Alcohol Consumption? None [email or web address] Information not available 08/10/2022 Are You Currently Sexually Active With Anyone Who Has Traveled (within The Last 12 Weeks) To A Zika-affected Area? No [email or web address] Information not available 08/10/2022 Are You Blind Or Do You Have Difficulty Seeing? Yes Glasses [email or web address] Information not available 06/21/2022 Is Blood Transfusion Acceptable In An Emergency? Yes [email or web address] Information not available 08/10/2022 What Is Your Level Of Caffeine Consumption? Moderate [email or web address] Information not available 08/10/2022 What Type Of Grain Buyer Do You Use? None [email or web address] Information not available 08/10/2022 What Is Your Code Status? Full Code [email or web address] Information not available 08/10/2022 In The 14 Days Before Symptom Onset, Have You Had Close Contact With A Laboratory-confi rmed COVID-19 While That Case Was Ill? No [email or web address] Information not available 08/10/2022 In The 14 Days Before Symptom Onset, Have You Had Close Contact With A Person Who Is Under Investigation For COVID-19 While That Person Was Ill? No [email or web address] Information not available 08/10/2022 Have You Been To An Area Known To Be High Risk For COVID-19? No [email or web address] Information not available 08/10/2022 Are You Currently Employed? No [email or web address] Information not available 08/10/2022 Are You Deaf Or Do You Have Serious Difficulty Hearing? No Information not available 08/10/2022 What Type Of Diet Are You Following? REGULAR [email or web address] Information not available 08/10/2022 Have You Processed Blood Or Body Fluids From An Ebola Virus Disease Patient Without Appropriate PPE? No [email or web address] Information not available 08/10/2022 Do You Reside In Or Have You Traveled To An Area Where Ebola Virus Transmission Is Active? No [email or web address] Information not available 08/10/2022 What Is The Highest Grade Or Level Of School You Have Completed Or The Highest Degree You Have Received? [id number] Information not available 08/10/2022 How Many Days Of Moderate To Strenuous Exercise, Like A Brisk Walk, Did You Do In The Last 7 Days? 0 [email or web address] Information not available 08/10/2022 Have There Been Any Changes To Your Family Or Social Situation? Yes Transferred From Home To Hospital To Assisted Living [email or web address] Information not available 08/10/2022 When Did You Quit Smoking? 16+yearssin cinthya conti [email or web address] Information not available 08/10/2022 Are There Any Guns Present In Your Home? No [email or web address] Information not available 08/10/2022 Which Of Your Hands Is Dominant? Right [email or web address] Information not available 08/10/2022 Have You Recently Or Are You Planning To Travel To An Area With Zika Virus? No [email or web address] Information not available 08/10/2022 Do You Have A Medical Power Of Therapeutic Program Worker? Yes [email or web address] Information not available 08/10/2022 What Was The Date Of Your Most Recent Tobacco Screening? 08/10/2022 [email or web address] Information not available 08/10/2022 How Many Children Do You Have? 2 [email or web address] Information not available 08/10/2022 What Is Your Current Pack Years? 10packyears [email or web address] Information not available 08/10/2022 Do You Have Any Pets? No [email or web address] Information not available 08/10/2022 What Is Your Relationship Status? [email or web address] Information not available 08/10/2022 Do You Use Your Seat Belt Or Car Seat Routinely? Yes [email or web address] Information not available 08/10/2022 Are You Sexually Active? No [email or web address] Information not available 08/10/2022 Do You Have Smoke And Carbon Monoxide Detectors In Your Home? Yes [email or web address] Information not available 08/10/2022 At What Age Did You Start Smoking Tobacco? 16 [email or web address] Information not available 08/10/2022 Are You Passively Exposed To Smoke? No [email or web address] Information not available 08/10/2022 Do You Participate In Social Media? No [email or web address] Information not available 08/10/2022 What Types Of Sporting Activities Do You Participate In? N/A Information not available 08/10/2022 Do You Feel Stressed (tense, Restless, Nervous, Or Anxious, Or Unable To Sleep At Night)? [id number] [email or web address] Information not available 08/10/2022 Do You Use Any Illicit Or Recreational Drugs? No [email or web address] Information not available 08/10/2022 Do You Use Sunscreen Routinely? No [email or web address] Information not available 08/10/2022 How Many Years Have You Smoked Tobacco? 25 [email or web address] Information not available 08/10/2022 Have You Recently Traveled Abroad? No [email or web address] Information not available 08/10/2022 Are You Currently In School? No [email or web address] Information not available 08/10/2022 Do You Have Any Dietary Restrictions? No Information not available 08/10/2022 Do You Or Have You Ever Used Any Other Forms Of Tobacco Or Nicotine? No [email or web address] Information not available 08/10/2022 Sex: Female Functional Status Question Answer Note LastModified by Organizat ion Details LastModified Time Do you have difficulty walking or climbing stairs? Yes [email or web address] Information not available 08/10/2022 Do you have transportation difficulties? No [email or web address] Information not available 08/10/2022 Are you able to walk? YESWOREST [email or web address] Information not available 08/10/2022 Do you have difficulty doing errands alone? Yes [email or web address] Information not available 08/10/2022 Are you able to care for yourself? Yes Information not available 08/10/2022 Do you have difficulty dressing or bathing? No [email or web address] Information not available 08/10/2022 What is your exercise level? None [email or web address] Information not available 08/10/2022 Mental Status Question Answer Note LastModified by Organization D etails LastModified Time Do you have difficulty concentrating, remembering or making decisions? Yes [email or web address] Information no t available 08/10/2022 Family History Relationship Description Onset Age of this Age Resolved Age Notes LastModified by Organization Details LastModified Time Father Malignant neoplastic disease Not available 2022 14:43:12 Father Heart disease [email or web address] Not available 09/13 15:24:28 Father Diabetes mellitus [email or web address] Not available 09/13 15:24:43 Mother Cerebrovascu lar accident [email or web address] Not available 12/2022 14:43:43 Mother Hypertensive disorder Not available 09/13 15:25:04 Medical History Condition Response Diabetes Y Psychiatric Diseases / Disorders Y Gynecological Diseases / Disorders Y Obesity Y Endocrine Diseases / Disorders Y Gastrointestinal Diseases / Disorders Y Musculoskeletal Diseases / Disorders Y Ear, Nose, Throat Diseases / Disorders Y Hyperlipidemia Y Skin Diseases / Disorders Y Depression Y Eye Disease / Disorders Y Hypertension Y Gynecological HistoryNo gynecological history recorded. Obstetrics History GPAL:G 0 P 0 0 0 0 Past Encounters Encounter ID Performer Location Encounter Start Date Encounter Closed Date Diagnosis/Indication Diagnosis SNOMED-CT Code Diagnosis ICD10 Code Diagnosis Note [id number] Lizzie Chatman KANDI Musa-BC, PMP-BC [facility] [address] [place] [address] 08/16/2022 06:43:20 08/16/2022 19:12:21 Complication due to diabetes mellitus 04035089 E11.8 taking medication . labs to eval levels. Hypothyroidism 68129810 E03.9 taking medication . labs to eval levels. Hyperlipidemia 86481650 E78.5 taking medication . labs to eval levels. Essential hypertension 15075983 I10 taking medication . labs to eval levels. Impacted c erumen of bilateral ears 4987882283 493319 H61.23 Generalize d anxiety disorder 48918184 F41.1 Increased Sertraline to 100 mg given symptoms Advance care planning 71 1102597 Z71.89 [id number] Melody Ugo [facility] [address] [place] [address] 09/13/2022 05:47:49 09/13/2022 15:16:35 Hyperlipidemia 32489129 E78.5 Atorvastat in increased given the elevated levels of Trigs which the closer to 400 increases pancreatit is risks. tolerating medication s well. Delmy and I discussed such at visit and dangers of continued elevated levels. She v/u. Generalize d anxiety disorder 88508613 F41.1 Has been doing better with PIPO with the increased medication . Adult [facility] th examination 316392412 Z00.00 Advance care planning 71 0410647 Z71.89 Urinary tr act infectious disease 08264345 N39.0 treated for UTI and doing much better Impacted c erumen of bilateral ears 0701399183 275882 H61.23 [id number] Lizzie Chatman Lencho, [facility] [address] [place] [address] 01/03/2023 07:58:09 01/03/2023 18:58:03 Hyperlipidemia 00982885 E78.2 taking medication s. labs to eval levels Complicati on due to diabetes mellitus 97807255 E11.8 taking medication . labs to eval levels. Essential hypertension 82838038 I10 taking medication . labs to eval levels. Hypothyroidism 50586831 E03.9 taking medication . labs to eval levels. Health Concerns Section Related Observation LastModified by Organization Detai ls LastModified Time None Recorded Concern Status LastModified by Organization Details LastModified Time None Recorded Advance Directives Directive Y: Payers Encounter Date Sequence Insurance Name Policy Number Policy Daley Covered Member ID Daley Member ID Guarantor Name 08/16/2022 1 [facility] (MEDICARE REPLACEMENT/A DVANTAGE - PPO) [id number] Delmy Saurabh [id number] Delmy Bergen 09/13/2022 1 [facility] (MEDICARE REPLACEMENT/A DVANTAGE - PPO) [id number] Delmy Wiley [id number] Delmy Bergen 01/03/2023 1 [facility] (MEDICARE REPLACEMENT/A DVANTAGE - PPO) [id number] Delmy Wiley [id number] Delmy Saurabh Notes Date Note Type Note Provider Name and Address Organization Details Recorded Time 3 text/html Here to establish care. Currently living at [facility] Living with her . DM - taking medications. not been good about checking sugars.Hypothyroidism - Patient is on Levothyroxine. Compliant with medication. Denies any side effects like palpitations. Denies any fatigue, weight gain, cold intolerance, constipation, or dry skin.HLD - Compliant with statin. No side effects.HTN - Compliant with medications. Does not report any WADE, blurry vision, dizziness, CP, SOB, or palpitations.Facility staff reported of increasing depression, anxiety. She has been having bouts of increasing tearfulness. Lizzie Musa, MECHANIC MARINE ENGINE-BC, PMHNP-BC [address] [place], [address], [place] - [facility] 08/16/2022 13:45:49 3 text/html Anxiety/DepressionReported bypatient.Quality:symptoms improved Severity:denies suicidal ideations; able to maintain relationships; does not interfere with activities of daily living Context:no major life stressors Associated Symptoms:denies homicidal ideations; no significant weight gain; no significant weight loss; no visual/auditory hallucinations; no delusions; no shortness of breath; mood good; no anxiety; no crying spells; no panic; no isolation; sleeping well; appetite good; energy good; no apathy; maintaining functionalityMedicare Annual Wellness VisitReported bypatient.Diet and Nutrition:discussed vitamin and supplement use; discussed portion control; discussed maintaining calcium balance; discussed diet improvement Fracture Risk:no sudden unexplained fractures Physical Activity:discussed weightbearing activities; discussed exercise habits Depression Risk:never feels sad, empty, or tearful; no loss of interest in activities; no significant changes in weight; no sleep disturbances or insomnia; no agitation; no loss of energy; no feelings of worthlessness or guilt; no thoughts of suicide; no history of depression; no history of mood disorders Orientation:no disorientation to time; no disorientation to date; no disorientation to place Concentration and Memory:no decreased concentrating ability; no memory lapses or loss; does not forget words Speech/Motor difficulties:no speech difficulties; no difficulty expressing formulated concepts; no difficulty with fine manipulative tasks; no difficulty writing/copying; no slowed reaction time; does not knock things over when trying to pick them up Hearing:loss 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 Vision:worsening Activities of Daily Living:able to bathe with limited or no assistance; able to contol urination and bowels; able to dress with limited or no assistance; able to feed self with limited or no assistance; able to get out of chair or bed with limited or no assistance; able to groom with limited or no assistance; able to toilet with limited or no assistance Instrumental Activities of Daily Living:able to do house work with limited or no assistance; able to grocery shop with limited or no assistance; able to manage medications with limited or no assistance; able to manage money with limited or no assistance; able to prepare meals with limited or no assistance; able to use the phone with limited or no assistance Falls Risk Assessment:no fall since last visit; no dizziness/vertigo Home Safety:no unsafe immanuel hazzards; no unsafe stairs; no unsafe gas appliances; working smoke/CO detectors; use of seatbelts; no fire arms; has hand bars in the bathroom/shower; good lighting in the home HLD - Given the increasing Triglycerides, Atorvastatin was increased last visit, tolerating well.Facility staff had notated hallucinations but around time she was treated for UTI. RUBY Mccarthy - [facility] 09/13/2022 15:19:01 3 text/html HLD - Compliant with statin. No side effects.Hypothyroidism - Patient is on Levothyroxine. Compliant with medication. Denies any side effects like palpitations. Denies any fatigue, weight gain, cold intolerance, constipation, or dry skin.DM - taking medications and checking blood sugars dailyHTN - Compliant with medications. Does not report any WADE, blurry vision, dizziness, CP, SOB, or palpitations. Lizzie Musa, MECHANIC MARINE ENGINE-BC, PMHNP-BC [address] [place], [address], [place] - [facility] 01/03/2023 15:58:02 OBGyn Episode No OBEpisode recorded.
--- OUTSIDE RECORDS SUMMARY | 2024-09-15 07:19 | XMS_ITS | Clinical Summary ---
Author Organization [facility] [place] [address] [place] [address] Care Team Providers Care Mellowing Machine Operator Name Role Phone Brandon Roth MD Unavailable Harjeet Munoz MD Unavailable [phone] Marie Gregory OD Unavailable [phone] Lizzie Musa FINNISH RUBBER Primary Care Provider [phone] Allergies Active Allergy Reactions Criticality Noted Date Comments Metformin Rash Medium 08/02/2019 Penicillins Other (See comments) Medium Passed out Sulfa (Sulfonamide Antibiotics) Hives Medium Reaction: Hives, , Medications vit C,T-Lx-rffnk-lutei n-zeaxan [id number] bd-svgy-xk-mg capsule Take 1 tablet by mouth 2 (two) times a day. Active blood-glucose meter kit Use daily for monitoring of diabetes DX E11.65 1 each 9 Active multivit-minerals/ folic acid (CENTRUM VITAMINTS ORAL) Take by mouth early head start director before breakfast Active albuterol HFA (PROVENTIL HFA,VENTOLIN [...] lost balance stepping off exercise equipment at [employer]. It never completely healed. Assessment & Plan (08/13/2020 12:51 PM PANEL LAY UP WORKER): She has a fairly nondescript and irregularly [...] 06/22/2016 Assessment & Plan (06/23/2019 10:01 AM PANEL LAY UP WORKER): She takes Tylenol as needed. It seems [...] 02/17/2021 Assessment & Plan (08/13/2020 11:28 AM PANEL LAY UP WORKER): Blood pressure is in a good range. She denies having any chest pain or dizziness. Continue current therapy. Assessment & Plan (12/27/2019 10:00 AM CDT): Blood pressure is in a reasonable range on current therapy. Continue same and follow-up in six months. Assessment & Plan (06/13/2019 10:51 AM PANEL LAY UP WORKER): Blood pressure is in a good range [...] 12/28/2017 Assessment & Plan (05/15/2018 12:17 PM PANEL LAY UP WORKER): Blood pressure is in a good range. Labs from about six months ago are normal. We will check another set before her follow-up in six months. Assessment & Plan (11/07/2017 11:50 AM CDT): Blood pressure is in a good range. She is tolerating her current medications. Denies chest pain. Follow-up in six months. Assessment & Plan (04/18/2017 12:09 PM PANEL LAY UP WORKER): Blood pressure is in a good range. [...] months. Assessment & Plan (08/13/2020 11:27 AM PANEL LAY UP WORKER): She is cheerful. She is tired of staying indoors because of COVID, but did get her first dose of vaccine recently. The second dose is due towards the end of this month. She continues on Zoloft 50 mg daily. Assessment & Plan (06/23/2019 10:01 AM PANEL LAY UP WORKER): She is on generic Zoloft, she is [...] care. Assessment & Plan (05/15/2018 12:17 PM PANEL LAY UP WORKER): She seems pretty cheerful. She is on [...] 09/27/2017 Assessment & Plan (08/13/2020 11:29 AM PANEL LAY UP WORKER): She is tolerating generic Lipitor. Continue same. Assessment & Plan (12/27/2019 9:59 AM CDT): She is tolerating generic Lipitor. Cholesterol numbers are fair. Continue same and follow-up in six months. Assessment & Plan (06/13/2019 10:51 AM PANEL LAY UP WORKER): She is on generic Lipitor, tolerating well. [...] same. Assessment & Plan (04/18/2017 12:13 PM PANEL LAY UP WORKER): She is on generic Lipitor. She has [...] 06/25/2020 Assessment & Plan (08/13/2020 11:26 AM PANEL LAY UP WORKER): TSH is in a good range on her current dose of levothyroxine. Continue same. Lab Results Component Value Date TSH 1.55 06/25/2020 Assessment & Plan (01/06/2020 3:59 PM CDT): She is on a stable dose of replacement therapy. She will be due for a TSH with her next set of labs. Assessment & Plan (06/13/2019 10:52 AM PANEL LAY UP WORKER): She is on a stable dose of [...] 12/28/2017 Assessment & Plan (05/15/2018 12:18 PM PANEL LAY UP WORKER): TSH about six months ago was normal. We will check another one before her next visit in six months. Assessment & Plan (11/07/2017 11:50 AM CDT): Her TSH was a little low, so Dr. Munoz lowered the replacement dose. She will follow up with him for additional testing. Assessment & Plan (04/18/2017 12:11 PM PANEL LAY UP WORKER): She is also followed by Dr. Munoz. [...] weight. Assessment & Plan (06/23/2019 10:00 AM PANEL LAY UP WORKER): She admits to not adhering tightly to [...] right. Assessment & Plan (04/18/2017 12:14 PM PANEL LAY UP WORKER): Weight is stable. She knows she could eat better than she does and will continue to work on that. We will check her again in six months. Resolved Problems Problem Noted Date Diagnosed Date Resolved Date Hx of colonic polyps 04/02/2019 021 Overview (08/12/2020): Added automatically from request for surgery [id number], colonoscopy on 05/08/2019: Normal except for hemorrhoids, diverticuli, Dr. Love, [facility]. Needs flu shot 04/01/2019 06/12/2019 Left-sided epistaxis 11/01/2017 021 Overview (08/12/2020): Details lacking. Type 2 diabetes mellitus cj ated without insulin 02/28/2013 10/01/2020 Overview (09/08/2016): Diabetes Mellitus, Type 2, Uncontrolled Assessment & Plan (08/13/2020 11:26 AM PANEL LAY UP WORKER): She is doing okay. Hemoglobin A1c is acceptable. She also follows up with Dr. Munoz. Return here in six months. Lab Results Component Value Date HGBA1C 7.8 (H) 06/25/2020 Assessment & Plan (06/13/2019 10:53 AM PANEL LAY UP WORKER): She is seeing Dr. Munoz for assistance [...] 09/06/2018 Assessment & Plan (05/28/2018 5:57 PM PANEL LAY UP WORKER): Blood sugars are still fluctuating moderately. She [...] Munoz. Assessment & Plan (04/18/2017 12:15 PM PANEL LAY UP WORKER): She sees Dr. Munoz who has a [...] 03/10/2017 Pneumococcal Polysaccharide PPV23 02/14/2011,04/2011,03/06/2009 Tdap 04/18/2017 Surgical History Surgery Date Site/Laterality Comments KNEE ARTHROPLASTY 06/06/2008 - 06/05/2009 Details lacking. REDUCTION MAMMOPLASTY Details lacking. KNEE ARTHROPLASTY 06/06/2006 - 06/05/2007 Details lacking. AUGMENTATION MAMMOPLASTY 06/06/2000 - 06/05/2001 Details lacking. KNEE ARTHROPLASTY 06/06/2005 - 06/05/2006 Details lacking. HYSTERECTOMY 06/06/1972 - 06/05/1973 Details lacking. BACK SURGERY 06/21/2016 Lumbar laminectomy, Dr. Dickerson [facility]. COLONOSCOPY 02/02/2013 Hemorrhoids, Dr. Aleman. BASAL CELL CARCINOMA EXCISION 06/06/2007 - 06/05/[address] Ward. TUMOR EXCISION 06/06/1955 - 06/05/1956 Left Excision of benign tumor, left arm, details lacking. OOPHORECTOMY REDUCTION MAMMAPLASTY 06/06/1999 - 06/05/2000 Bilateral MAMMOGRAPHY 02/27/2018 Bilateral Normal, [facility]. DIABETES EYE EXAM 04/03/2018 No diabetic retinopathy, [facility]. DIABETES EYE EXAM 12/18/2018 No diabetic retinopathy, does have macular degeneration, Dr. Roth, [facility]. DIABETES EYE EXAM 02/12/2019 Bilateral Stable exam, no diabetic retinopathy, Dr. Roth, [facility]. MAMMOGRAPHY 03/28/2019 Bilateral Negative, [facility]. DIABETES EYE EXAM 03/26/2019 Bilateral No diabetic retinopathy. Exudative macular degeneration, OD, Dr. Roth, [facility]. COLONOSCOPY 02/02/2013 COLONOSCOPY 05/08/2019 Normal except for hemorrhoids, diverticuli, Dr. Aleman, [facility]. DIABETES EYE EXAM 06/18/2019 Bilateral No diabetic retinopathy, Dr. Roth, [facility]. BREAST CYST EXCISION Left pt very young, unknown year? MAMMOGRAPHY 05/22/2020 Bilateral Negative, [facility]. DIABETES EYE EXAM 12/04/2020 Bilateral Exam for macular degeneration by [facility], no diabetic retinopathy. MAMMOGRAPHY 09/30/2021 Bilateral Negative, [facility]. DIABETES EYE EXAM 02/17/2022 Bilateral Diabetic eye exam, 02/17/2022. Patient declined pupil dilation, but no diabetic retinopathy reported, Marie Gregory, OD, [facility]. Medical History Medical History Date Comments Type 2 diabetes mellitus (HCC) D iabetes type 2 Hyperlipidemia Hyperlipidemia Hypertension 2007 Disorder of thyroid Thyroid dise ase Diabetes mellitus (HCC) Diabetes Depression Depression Shingles 2009 Lower abdomen on left. Facial basal cell cancer 2007 Dr. Kamran Ward. Breast cyst Colon polyp Needs flu shot 04/01/2019 Hx of colonic polyps 04/02/2019 Added autom atically from request for surgery [id number], colonoscopy on 05/08/2019: Normal except for hemorrhoids, diverticuli, Dr. Aleman, [facility]. Left-sided epistaxis 11/01/2017 Details lac tha. Non morbid obesity 03/06/1997 Severe obesity (BMI 35.0-39. 9) with comorbidity (HCC) 03/06/1997 Lost weight, BMI <35 as of a bout January 2022. Family History Medical History Relation Name Comments Coronary artery disease Father Edilia nary artery disease; Diabetes Father Diabetes mellit us; /Diabetes mellitus; Heart disease Father Heart disease; Cause of : Heart disease Heart disease Mother Heart disease; Hypertension Mother Hypertension; Stroke Mother Stroke; Lupus Sister 1 Systemic lupus erythematosus; Diabetes Sister 2 Diabetes mellit us; Hypertension Sister 3 Hypertension; Relation Name Status Comments Father Mother Sister 1 Sister 2 Sister 3 Social History Tobacco Use Types Packs/Day Years [...] on file Legal Sex Female 12:51 AM PANEL LAY UP WORKER Gender Identity Not on file Sexual Orientation Not on file Obstetrics History Para Term AB IAB SAB Ectopic Multiple Livin g Live Births 3 2 2 Date Outcome GA Total Labor Labor/2nd/3rd Weight Sex Type Anes PTL Kenna A1 A5 Name Clin Term Term Last Filed Vital Signs Vital Sign Reading Time Taken Comments Blood Pressure 156/52 05/15/2022 9:34 PM PANEL LAY UP WORKER Pulse 73 05/15/2022 9:34 PM PANEL LAY UP WORKER Temperature 36.6 C (97.8 F) 05/15/2022 9:34 PM PANEL LAY UP WORKER Respiratory Rate 16 05/15/2022 9:34 PM PANEL LAY UP WORKER Oxygen Saturation 98% 05/15/2022 9:34 PM PANEL LAY UP WORKER Inhaled Oxygen Concentration - - Weight 83 kg (183 lb) 05/15/2022 4:22 PM PANEL LAY UP WORKER Height 152.4 cm (5') 02/26/2022 11:23 AM CDT Body Mass Index 35.74 02/26/2022 11:23 AM CDT Plan of Treatment Health Maintenance Due Date Last Done Comments Osteoporosis Screening-Bone Density Scan 1938 Hepatitis B Screening 1956 Zoster Vaccine (1 of 2) 1988 Lipid Panel 02/17/2022 02/17/2021, 0702/2020, 09/27/2017, Additional history exists Albumin Creatinine Ratio, Urine 02/23/2022 , 12/27/2019 Hemoglobin A1C 07/30/2022 01/27/2022, 08/04, 08/12/2021, Additional history exists Depression Screening 08/26/2022 08/26/2021, 08/13/2020, 12/27/2019, Additional history exists Fall Risk Assessment 08/26/2022 08/26/2021, 08/13/2020, 06/13/2019, Additional history exists Well Visit 65+ 08/26/2022 08/26/2021, 08/04, 06/13/2019, Additional history exists Dilated Eye Exam 02/17/2023 02/17/2022, 06/2020, 08/21/2020, Additional history exists Foot Exam 02/26/2023 02/26/2022, 08/05, 02/23/2021, Additional history exists eGFR 05/15/2023 05/15/2022, 02/04, 06/25/2020, Additional history exists Covid-19 Vaccine (2023-2 5 season) 2024 04/01/2021, 08/24/2020, 08/02/2020 Influenza Vaccine (#1) 2024 2, 03/25/2021, 03/05/2020, Additional history exists DTaP/Tdap/Td Vaccine (2 - Td or Tdap) 04/18/2027 04/18/2017 Pneumococcal vaccine 65+ Completed 017, 02/14/2011, 02/14/2011, Additional history exists Medical Devices Implanted Type Area Gathering Machine Feeder Device Identifier Shelf Expiration Date Model / Serial / Lot Knee Bilateral: Knee Procedures Procedure Name Priority Date/Time Associated Diagnosis Comments EGFR STAT 05/15/2022 4:29 PM PANEL LAY UP WORKER DIABETES EYE EXAM Routine 02/17/2022 POCT HEMOGLOBIN [...] Maintenance Results * eGFR (05/15/2022 4:29 PM PANEL LAY UP WORKER) eGFR 79 mL/min/1. 73 m2 [facility] JONES (PRIETO) Comment: Interpretive Data Reference Interval Normal >/= [...] of Race in Diagnosing Kidney Disease, JASN 2020). The CKD-EPI equation should not be used for patients with unstable renal function and has not been validated in children and those over 70. Current interpretive data was last reviewed 2021. Blood 05/15/2022 4:29 PM PANEL LAY UP WORKER 05/15/2022 4:39 PM PANEL LAY UP WORKER Madina Colon MD LAB BLOOD ORDERABLES Final Result [facility] [address] [facility] Department [place] [address] * DIABETES EYE EXAM (02/17/2022) Pathologist [facility] SCRIBED DIABETIC DILATED EYE EXAM Normal Impressions Anton Cho MD - 02/17/2022 Patient declined pupil dilation, but no diabetic retinopathy reported. Narrative Anton Cho MD - 02/17/2022 See scanned report. Marie Gregory OD HEALTH MAINTENANCE Final Result * POCT hemoglobin A1c (01/27/2022 8:51 AM CDT) Pathologist [facility] Hemoglobin A1C, POC 7.5 Blood specimen (specimen) 01/27/2022 8:51 AM CDT Harjeet Munoz MD POINT OF CARE TEST ORDERABLES Final Result * Albumin Creatinine Ratio, Urine (02/23/2021 10:50 AM CDT) Pathologist [facility] Albumin Ur <12.0 mg/L [facility] Comment: Interpretive Data No reference range established. Current interpretive data was last revised 2018. Creatinine Ur 90.7 mg/dL G[facility]ELE Comment: Interpretive Data No reference range established. Current interpretive data was last revised 2018. Albumin Creatinine Ratio, Ur <13 1 - 29 mg/g [facility] Urine 02/23/2021 10:5 0 AM CDT 02/23/2021 4:36 PM CDT us Anton Cho MD LAB URINE ORDERABLES Final Re sult [facility] [address] Department [place] [address] * (ABNORMAL) Lipid panel (02/17/2021 7:56 AM CDT) Cholesterol 159 30 - 199 mg/dL G[facility]ELE VENTURA Comment: Interpretive Data Ages [...] on 2018. HDL 37(L) >=40 mg/dL [facility] Comment: Interpretive Data Ages [...] 2018. LDL, calculated 90 <=129 mg/dL [facility] Comment: Interpretive Data Ages [...] 7:56 AM CDT 02/17/2021 3:29 PM CDT us Anton Cho MD LAB BLOOD ORDERABLES Final Re sult [facility] [address] [place] [address] * DIABETES FOOT EXAM (09/21/2017) [facility] Signature Diabetic Foot Exam Unknown Historical Provider MD HEALTH MAINTENANCE Final Result from Last 3 Months or Most Recently Relevant to Health Maintenance Insurance MEDICARE ADVANTAGE MEDICARE ADVANTAGE [place] [id number] MEDICARE ADVANTAGE Advance Directives For more information, please contact: [phone] Documents on File Type Date Recorded Patient Gynaecological Oncologist Expl anation ADVANCE DIRECTIVE 05/12/2022 POWER OF A TTORNEY-MEDICAL ADVANCE DIRECTIVE 05/12/2022 POWER OF A TTORNEY-MEDICAL * Full Code (Latest Code Status on File) Date Activated Date Inactivated Comments 05/08/2019 9:18 AM 05/08/2019 3:50 PM * Full Code Date Activated Date Inactivated Comments 05/08/2019 9:18 AM 05/08/2019 9:18 AM Care Teams Mellowing Machine Operator Relationship Specialty Start Date End Date Lizzie Musa NP [address] [place] [address] PCP - General Nurse Practitioner 02/11/23 Brandon Roth MD Consulting Physician Ophthalmology 03/16/17 Harjeet Munoz MD [address] [place] [address] [address] Consulting Physician Endocrinology 03/16/17 Marie Gregory OD [address] [place] [address] Consulting Physician Optometry 03/02/22
--- NOTE | 2024-09-15 07:55 | PCRCNOTE ---
0750 Arrived to draw ABG and Pt. Had been taken to X-RAY.
[2024-09-15 08:19] LABS: Basophils Percent Auto 0.3 % (0.2-1.2); Eosinophils Absolute Auto 0.1 K/mm3 (0-0.3); Eosinophils Percent Auto 1.2 % (0-4.4); Hematocrit 41.8 % (37.0-47.0); Hemoglobin 13.3 g/dL (12.0-15.0); Immature Granulocyte Absolute 0.06 K/mm3 (0.00-0.031); Immature Granulocyte Percent A 0.5 % (0-0.5); Lymphocytes Absolute Auto 1.71 K/mm3 (0.9-3.2); Lymphocytes Percent Auto 14.9 % (18.3-44.2); Mean Corpuscular HGB Conc 31.8 g/dl (32-36); Mean Corpuscular Hemoglobin 26.3 pg (26-34); Mean Corpuscular Volume 82.8 fl (80-100); Mean Platelet Volume 9.6 fl (7.4-10.4); Monocytes Absolute Auto 0.8 K/mm3 (0.1-0.6); Monocytes Percent Auto 6.7 % (2.6-8.5); Neutrophils Absolute Auto 8.8 K/mm3 (1.3-6.7); Neutrophils Percent Auto 76.4 % (45.5-73.1); Platelet Count Result 164 k/mm3 (150-375); Red Blood Count 5.05 M/mm3 (4.2-5.4); Red Cell Distribution Width 15.5 % (11.5-14.5); White Blood Count 11.5 K/mm3 (4.5-10.0)
[2024-09-15 08:26] LABS: Alveolar/Arterial O2 Gradient 30.4 mmHg; Base Excess ABG 3.6 mEq/l (+/-2.0); Fractional Inspired Oxygen 21 %; HCO3 ABG 28.6 mEq/l (22.0-26.0); Oxygen Content ABG 17.8 %vol (16.0-22.0); Oxygen Saturation ABG 93.4 % (95.0-100.0); Oxyhemoglobin 91.8 % THb (90.0-100.0); PCO2 ABG 44.6 mmHg (35.0-45.0); PO2 ABG 65.9 mmHg (80.0-100.0); PO2 FiO2 Ratio Arterial Blood 3.14 %; Total Hemoglobin 13.8 g/dL (12.0-18.0); pH ABG 7.425 (7.350-7.450)
[2024-09-15 08:27] LABS: Device ROOM AIR; Modified Allen's Test Pass; Site Drawn LEFT RADIAL
[2024-09-15 08:30] LABS: Alanine Aminotransferase 21 U/L (6-35); Albumin Level 4.1 g/dL (3.5-5.1); Alkaline Phosphatase 92 U/L (38-126); Anion Gap 9 mmol/L (4-12); Aspartate Amino Transferase 26 U/L (14-36); Bilirubin,Total 1.2 mg/dL (0.2-1.3); Blood Urea Nitrogen 23 mg/dL (7-17); Calcium 9.2 mg/dL (8.4-10.2); Carbon Dioxide 31 mmol/L (22-30); Chloride 98 mmol/L (98-107); Estimated Glomerular Filt Rate > 60; Glucose 271 mg/dL (65-110); Lactic Acid Reflex 2.4 mmol/L (0.7-2.0); Lipase 182 U/L (23-300); Magnesium 1.7 mg/dL (1.6-2.3); Phosphorus 3.7 mg/dL (2.5-4.5); Potassium 3.9 mmol/L (3.4-5.0); Sodium 138 mmol/L (137-145)
[2024-09-15 08:31] LABS: Partial Thromboplastin Time 22.9 Seconds (22.3-36.8)
--- NOTE | 2024-09-15 08:44 | ED_ITS ---
HPI - General Adult General Chief complaint: Fall Stated complaint: glf History of Present Illness HPI narrative: This is an 83-year-old female presenting after ground level fall. She tripped going around her bed and struck her face on a dresser hyperextending her neck. She sustained an abrasion to her face. She now has weakness in pins and needles in both hands. Denies any other injuries. Related Data Allergies Allergy/AdvReac Type Severity Reaction Status Date / Time Penicillins Allergy Severe LOSS OF Verified 09/15/24 07:27 CONSCIOUSNESS [facility] Past Medical History Medical History (Updated 06/23/24 @ 00:01 by Background Daemon) Macular degeneration Diabetes Dementia Exam 2 Narrative: APPEARANCE: No apparent distress. Head: Abrasions and a small shallow laceration over the bridge of the nose, blood in the nares, no septal hematoma EYES: EOMI, NOSE: Horizontal laceration over the nose NECK:No midline tenderness RESPIRATORY: No increased rate of breathing CTAB CARDIOVASCULAR: RRR, no peripheral edema ABDOMINAL: Non-distended MUSCULOSKELETAl: No obvious deformities NEURO: Alert. Cranial nerves 2-12 grossly intact. Motor strength = LUE 3/5, RUE 4/5, LLE 3/5,RLE 5/5. Paresthesias reported in both arms, Sensation to light touch and /pain temperature is intact. SKIN:: Warm, dry. Normal color PSYCHIATRIC: Normal affect Course Vital Signs Vital signs: Vital Signs Temperature 97.7 F 09/15/24 07:01 Pulse Rate 65 09/15/24 07:01 Respiratory Rate 16 09/15/24 07:01 Blood Pressure 137/116 H 09/15/24 07:01 Pulse Oximetry 98 09/15/24 07:01 Oxygen Delivery Room Air 09/15/24 07:01 Temperature 97.7 F 09/15/24 07:01 Pulse Rate 65 09/15/24 07:01 Respiratory Rate 16 09/15/24 07:01 Blood Pressure 137/116 H 09/15/24 07:01 Pulse Oximetry 98 09/15/24 07:01 Oxygen Delivery Room Air 09/15/24 07:01 Medical Decision Making [facility] Narrative Medical decision making narrative: -Course: 83-year-old female presenting after ground level fall with hyperextension injury of the neck. CT imaging of the brain and spinal cord were negative negative for intracranial bleed or bony spinal column injury. However the patient still has weakness in her left hand right hand and left leg. This highly concerning for a anterior spinal cord injury. Patient is hemodynamically stable and protecting her own airway with normal respiratory effort. She will be transferred emergently to [facility] for trauma evaluation CT facial bone showed several nondisplaced nasal bone fractures. Pt given tdap. -DDX includes but is not limited to: -Co-morbidities complicating care: -Social determinants of health: -External Chart Review: -Hx from independent Sources: -Independent interpretation of studies: -Discussion of Management/Consultants: -Dx tests considered but not ordered: -Procedures: -Interventions: -Shared decision making / Disposition: -RX Vital Signs Vital Signs: Vital Signs Temperature 97.7 F 09/15/24 07:01 Pulse Rate 65 09/15/24 07:01 Respiratory Rate 16 09/15/24 07:01 Blood Pressure 137/116 H 09/15/24 07:01 Pulse Oximetry 98 09/15/24 07:01 Oxygen Delivery Room Air 09/15/24 07:01 Temperature 97.7 F 09/15/24 07:01 Pulse Rate 65 09/15/24 07:01 Respiratory Rate 16 09/15/24 07:01 Blood Pressure 137/116 H 09/15/24 07:01 Pulse Oximetry 98 09/15/24 07:01 Oxygen Delivery Room Air 09/15/24 07:01 Lab Data 09/15/24 08:13 09/15/24 08:13 Labs: Lab Results 09/15/24 Range/Units 08:13 WBC 11.5 H (4.5-10.0) K/mm3 RBC 5.05 (4.2-5.4) M/mm3 Hgb 13.3 (12.0-15.0) g/dL Hct 41.8 (37.0-47.0) % MCV 82.8 (80-100) fl MCH 26.3 (26-34) pg MCHC 31.8 L (32-36) g/dl RDW 15.5 H (11.5-14.5) % Plt Count 164 (150-375) k/mm3 MPV 9.6 (7.4-10.4) fl Immature Gran % (Auto) 0.5 (0-0.5) % Neut % (Auto) 76.4 H (45.5-73.1) % Lymph % (Auto) 14.9 L (18.3-44.2) % [place] % (Auto) 6.7 (2.6-8.5) % Eos % (Auto) 1.2 (0-4.4) % Baso % (Auto) 0.3 (0.2-1.2) % Lymph # (Auto) 1.71 (0.9-3.2) K/mm3 [place] # (Auto) 0.8 H (0.1-0.6) K/mm3 Eos # (Auto) 0.1 (0-0.3) K/mm3 Baso # (Auto) 0.0 (0.0-0.1) K/mm3 Abs Immat Gran (auto) 0.06 H (0.00-0.031) K/mm3 Absolute Neuts (auto) 8.8 H (1.3-6.7) K/mm3 Absolute Nucleated RBC 0.000 (0.0-0.012) K/mm3 Nucleated RBC % 0.0 (0.0-0.2) % PT 14.0 (11.1-14.7) Seconds INR 1.0 APTT 22.9 (22.3-36.8) Seconds Sodium 138 (137-145) mmol/L Potassium 3.9 (3.4-5.0) mmol/L Chloride 98 (98-107) mmol/L Carbon Dioxide 31 H (22-30) mmol/L Anion Gap 9 (4-12) mmol/L BUN 23 H (7-17) mg/dL Creatinine 0.86 (0.7-1.0) mg/dL Estim Creat Clear Calc Not Reportable Estimated GFR > 60 (59 - ) Glucose 271 H (65-110) mg/dL Lactic Acid 2.4 H (0.7-2.0) mmol/L Calcium 9.2 (8.4-10.2) mg/dL Phosphorus 3.7 (2.5-4.5) mg/dL Magnesium 1.7 (1.6-2.3) mg/dL Total Bilirubin 1.2 (0.2-1.3) mg/dL AST 26 (14-36) U/L ALT 21 (6-35) U/L Alkaline Phosphatase 92 (38-126) U/L Total Protein 7.0 (6.3-8.2) g/dL Albumin 4.1 (3.5-5.1) g/dL Lipase 182 (23-300) U/L ABG Data ABG results: 09/15/24 08:21 Puncture Site Left radial ABG pH 7.425 ABG pCO2 44.6 ABG pO2 65.9 L ABG PO2/FiO2 Ratio 3.14 ABG HCO3 28.6 H ABG O2 Saturation 93.4 L ABG O2 Content 17.8 ABG Base Excess 3.6 A-a Gradient 30.4 Oxyhemoglobin 91.8 Total Hemoglobin 13.8 O2 Delivery Device Room air O2 Liters/Min 0.0 FiO2 21 Discharge Plan Discharge Patient Language: [place]ian Follow-up/Referrals: UNKNOWN,DOCTOR [Primary Care Provider] -
[2024-09-15] MEDS: TETANUS,DIPHTHERIA,AC PERTUSSIS ADULT (0.5 ML) BOOSTRIX IM (08:52)
[2024-09-15 08:58] VITALS: BP 153/50; PULSE 63; RESP 18; TEMP 36.6; O2SAT 97
--- NOTE | 2024-09-15 09:20 | PC.NURSE ---
Rossi, nurse, at [facility] given patient update.
[2024-09-15 10:17] LABS: Reflex Lactic Acid Yes or No Add Lactic
== END 2024-09-15 09:48 | disposition short-term general hospital (02) ==
PROVIDERS: Emergency Provider Emergency Medicine
DX: S14.13 Anterior cord syndrome of cervical spinal cord (principal); S02.2XXA Fracture of nasal bones, initial encounter for closed fracture; R53.1 Weakness; Z23 Encounter for immunization; F03.90 Unspecified dementia, unspecified severity, without behavioral disturbance, psychotic disturbance, mood disturbance, and anxiety; E11.9 Type 2 diabetes mellitus without complications; H35.30 Unspecified macular degeneration; W01.190A Fall on same level from slipping, tripping and stumbling with subsequent striking against furniture, initial encounter
CPT/HCPCS: 36415; 36600; 70450; 70486; 71045; 72125; 72128; 72131; 73502; 80053; 82805; 83605; 83690; 83735; 84100; 85018; 85025; 85610; 85730; 90471; 90715; 99285; L0140